=== PATIENT | female | born 1990 | race Caucasian/White ===

== ENCOUNTER → 2018-07-07 | Outpatient (CLI) | payer BC, OTHER ==
[~2018-07-07] MED LIST: FERR325T18 PO; IBUP-1773 PO; PREN1TAB86 PO
--- NOTE | 2018-07-07 17:39 | Diagnostic Imaging Report ---
INDICATION: Ultrasound evaluation for dating. TECHNIQUE: Multiple real-time grayscale images were obtained over the gravid uterus. COMPARISON: None. FINDINGS: Limited obstetrical ultrasound demonstrates a single live intrauterine in variable presentation. Grade 1 placenta lies anteriorly. No evidence of previa. heart rate is 155 beats per minute. Male genital anatomy. Anatomic measurements correspond to a 15 weeks, 4 days gestation. The cervix is closed and measures up to 4.3 cm in length. The ovaries are not well seen. Biometrical measurements are as follows: Biparietal 3.11 cm, age 15 weeks 6 days. Head circumference 11.60 cm, age 15 weeks 5 days. Abdominal circumference 8.75 cm, age 15 weeks 1 days. Femur length 1.74 cm, age 15 weeks 2 days. Sonographic estimate age: 15 weeks 4 days. Sonographic estimated date of delivery: 12/25/18. Estimated Weight: 116 gm (+/- 17 gm). LMP percentile: 2%. heart rate: 155 beats per minute. number: 1 of 1. IMPRESSION: Limited obstetrical ultrasound, as above. Anatomic measurements corresponding to a 15 weeks, 4 days gestation (RISHI 12/25/2018). Dictated by: Dictated on workstation # [id number]
== END ==
LOC: RAD 15:28
PROVIDERS: ATTEND Family Medicine
DX: Z34.82 Encounter for supervision of other normal pregnancy, second trimester (principal); Z3A.15 15 weeks gestation of pregnancy
CPT/HCPCS: 76805

== ENCOUNTER 2018-12-20 07:00 | Inpatient (IN) | payer OTHER ==
[2018-12-20] VITALS (29 sets, daily range): BP systolic 107–139; BP diastolic 55–103
[~2018-12-20] VITALS: Ht 157.5 cm; Wt 73.3 kg
--- NOTE | 2018-12-20 07:01 | NUR ---
ARMANDO BIRD presented to unit via AMBULATORY from HOME, accompanied by S/O FOR INDUCTION OF LABOR. ARMANDO BIRD weighed, gowned, voided, and to bed. EFHM and TOCO applied, VS taken. ARMANDO BIRD oriented to bed controls, call light, TV, heat, and A/C controls.
--- NOTE | 2018-12-20 07:12 | NUR ---
DR. HARPER CALLED PER THIS RN. DR WANTS A SVE DONE BEFORE PLACING ORDERS. WILL CHECK AND CALL PHYSICIAN BACK.
--- OUTSIDE RECORDS SUMMARY | 2018-12-20 07:14 | XMS REPORT ---
Author Author MEREDITH SISSY [facility] Address [address] [place] [address] Care Team Providers Care Slurry Control Operator Helper Name Role Phone MEREDITHKENDRA NUÑEZY Unavailable PROBLEMS Unknown Problems ALLERGIES No Information ENCOUNTERS Encounter Location Date Diagnosis [place] [address] [address] Jun, [place] [address] [address] Jun, [place] [address] [address]- 5336 May, Normal in multigravida Z34.80 ; Encounter for immunization Z23 and 12 weeks gestation of Z3A.12 [place] [address] [place] [id number] [place] [address] 23533- 0190 May, [place] [address] [address]- [address]240 Apr, [place] [address] [place] [id number] [place] [address] 59164- 4882 Apr, Encounter for test, result unknown Z32.00 [facility] [address] [place] [id number] [place] [address] [id number] Feb, Dental examination Z01.20 [place] [address] 6[address]- 8602 December, Intrahepatic cholestasis K76.89 [place] [address] [place] [id number] [place] [address] 51163- 2450 Nov, Routine follow-up Z39.2 ; Intrahepatic cholestasis K76.89 and anemia O90.81 [place] [address] [place] [id number] [place] [address] 18547- 4809 16 Oct, 2015 36 weeks gestation of Z3A.36 ; Itching L29.9 and Transaminitis R74.0 [place] [address] [place] [id number] [place] [address] 42097- 1282 16 Oct, 2015 Transaminitis R74.0 [place] [address] [place] [id number] [place] [address] 85607- 2455 15 Oct, 2015 Encounter for supervision of normal first in third trimester Z34.03 ; screening for streptococcus B Z36 ; 36 weeks gestation of Z3A.36 and Itching L29.9 [place] [address] [place] [id number] [place] [address] 12848- 7047 11 Oct, 2015 Encounter for supervision of normal first in third trimester Z34.03 and 35 weeks gestation of Z3A.[address] [address]- [address] Sep, Encounter for supervision of normal first in third trimester Z34.03 ; 31 weeks gestation of Z3A.31 and Encounter for immunization Z23 [place] [address] [place] [id number] [place] [address] 51300- 0396 Aug, [place] [address] [place] [id number] [place] [address] 61593- 4608 Aug, [place] [address] [place] [id number] [place] [address] 43932- 0998 Aug, Elevated glucose tolerance test R73.02 [place] [id number] [place] [address] 65871- 0545 Aug, Diabetes mellitus screening Z13.1 ; Screening, iron deficiency anemia Z13.0 ; Encounter for supervision of normal first in third trimester Z34.03 and 29 weeks gestation of Z3A.29 [place] [address] [place] [id number] [place] [address] 55948- 0517 Jul, , first, second trimester Z34.02 and 24 weeks gestation of Z3A.24 [facility] [address] [address] Jun, , first, second trimester Z34.02 and 20 weeks gestation of Z3A.20 [facility] [address], [place] [address] May, , first, second trimester Z34.02 ; Encounter for immunization Z23 and 16 weeks gestation of Z3A.16 [facility] [address] [id number] May, Dental examination Z01.20 [facility] [address] [place] [id number] [place] [address] 95266- 9766 Apr, Supervision of normal first V22.0 [facility] [address] [place] [id number] [place] [address] 11578- 7243 Mar, Encounter for test V72.40 [facility] [address] [place] [id number] [place] [address] 26882- 0888 Mar, Pre-conception counseling V26.49 [facility] [address] [place] [id number] [place] [address] 68585- 7456 Feb, [facility] [address] [place] [id number] [place] [address] 01986- 7567 Feb, [facility] [address] [place] [id number] [place] [address] 17410- 3203 Feb, [facility] [address] [place] [id number] [place] [address] 84615- 2263 Feb, [facility] [address] [place] [id number] [place] [address] 02463- 0856 Feb, [facility] [address] [place] [id number] [place] [address] 44199- 0176 May, [facility] [address] [place] [id number] [place] [address] 65028- 0627 May, [facility] [address] [facility] [id number] [address] 26[address] Mar, [facility] [address] [place] [id number] [address] 3826 Jun, [facility] [address] [facility] [id number], [place] [address] Jun, [facility] [address] [place] [id number], [place] [address] 2430 May, IMMUNIZATIONS No Known Immunizations SOCIAL HISTORY Never Assessed 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
--- OUTSIDE RECORDS SUMMARY | 2018-12-20 07:14 | XMS REPORT ---
Author Author MEREDITH SISSY [facility] Address [address] [place] [address] Care Team Providers Care Real Estate Office Supervisor Name Role Phone MEREDITHPARASSISSY Unavailable PROBLEMS Unknown Problems ALLERGIES No Information ENCOUNTERS Encounter Location Date Diagnosis [place] [address] [address] Jun, [address] [address]- [address] May, Normal in multigravida Z34.80 ; Encounter for immunization Z23 and 12 weeks gestation of Z3A.12 [place] [address] 03579- 5857 May, [place] [address] 64143- 2778 Apr, [place] [address] 54841- 8996 Apr, Encounter for test, result unknown Z32.00 [facility] [address] [id number] Feb, Dental examination Z01.20 [place] [address] [place] [id number] [place] [address] 18235- 9314 December, Intrahepatic cholestasis K76.89 [place] [address] 63638- 1460 Nov, Routine follow-up Z39.2 ; Intrahepatic cholestasis K76.89 and anemia O90.81 [place] [address] 11916- 3358 16 Mar, 2016 36 weeks gestation of Z3A.36 ; Itching L29.9 and Transaminitis R74.0 [place] [address] [place] [id number] [place] [address] 90480- 9325 16 Oct, 2015 Transaminitis R74.0 [facility] [address] [place] [id number] [place] [address] 23571- 7782 15 Oct, 2015 Encounter for supervision of normal first in third trimester Z34.03 ; screening for streptococcus B Z36 ; 36 weeks gestation of Z3A.36 and Itching L29.9 [place] [address] [place] [id number] [place] [address] 99191- 5881 11 Oct, 2015 Encounter for supervision of normal first in third trimester Z34.03 and 35 weeks gestation of Z3A.35 [place] [address] [place] [id number] [place] [address] 18467- 6962 Sep, Encounter for supervision of normal first in third trimester Z34.03 ; 31 weeks gestation of Z3A.31 and Encounter for immunization Z23 [place] [address] [place] [id number] [place] [address] 48620- 7897 Aug, [place] [address] [place] [id number] [place] [address] 50606- 0370 Aug, [place] [address] [place] [id number] [place] [address] 00682- 1313 Aug, Elevated glucose tolerance test R73.02 [place] [address] [place] [id number] [place] [address] 58324- 7166 Aug, Diabetes mellitus screening Z13.1 ; Screening, iron deficiency anemia Z13.0 ; Encounter for supervision of normal first in third trimester Z34.03 and 29 weeks gestation of Z3A.29 [place] [address] [place] [id number] [place] [address] 01844- 1094 Jul, , first, second trimester Z34.02 and 24 weeks gestation of Z3A.24 [place] [address] 26447- 0188 Jun, , first, second trimester Z34.02 and 20 weeks gestation of Z3A.20 [facility] [address] [place] [id number] [place] [address] 01281- 3527 May, , first, second trimester Z34.02 ; Encounter for immunization Z23 and 16 weeks gestation of Z3A.16 [facility] [address] [place] [id number] [place] [address] [id number] May, Dental examination Z01.20 [facility] [address] [place] [id number] [place] [address] 12123- 4266 Apr, Supervision of normal first V22.0 [facility] [address] 91965- 4961 Mar, Encounter for test V72.40 [facility] [address] 84015- 0453 Mar, Pre-conception counseling V26.49 [facility] [address] [place] [id number] [place] [address] 29008- 8139 Feb, [facility] [address] [place] [id number] [place] [address] 21423- 3065 Feb, [facility] [address] [place] [id number] [place] [address] 87582- 7953 Feb, [facility] [address] [place] [id number] [place] [address] 76729- 9466 Feb, [facility] [address] [place] [id number] [place] [address] 60699- 4223 Feb, [facility] [address] [place] [id number] [place] [address] 80177- 1546 May, [facility] [address] [place] [id number] [place] [address] 75283- 4096 May, [facility] [address] [place] [id number] [place] [address] 41017- 7952 Mar, [facility] [address] [facility] [id number] [place] [address]- 8249 Jun, [facility] [address] [facility] [id number], [place] [address]- 0366 Jun, [facility] [address] [facility] [id number], [place] [address]- 7226 May, IMMUNIZATIONS Vaccine Route Administration Date Status FLULAVAL QUAD 0.5ML (6 MO & UP) 2018 IM Intramuscular Jun 07, 2018 Administered SOCIAL HISTORY Never Assessed REASON FOR VISIT AL-relscw-frthzd PLAN OF CARE Activity Details Follow Up 4W, 4 Weeks Reason: Pending Test Ultrasound : OB, Early <14 WEEKS Pending Test GC/CHLAM PROBE (STATE) Pending Test SYPHILIS (STATE) Pending Test HIV (STATE) Pending Test HEP B SURFACE ANTIGEN (STATE) Pending Test SUREPATH PAP RFX HR HPV Pending Test PAP REFLEX TO HPV IF ASCUS Future/Pending Procedure ROUTINE VENIPUNCTURE VITAL SIGNS Height 62 in 2018-06-07 Weight 131.4 lbs 2018-06-07 Temperature 98.6 degrees Fahrenheit 2018-06-07 Heart Rate 110 bpm 2018-06-07 Respiratory Rate 20 2018-06-07 BMI 24.033 kg/m2 2018-06-07 Blood pressure systolic 104 mmHg 2018-06-07 Blood pressure diastolic 60 mmHg 2018-06-07 MEDICATIONS Medication Instructions Dosage Frequency Start Date End Date Duration Status Complete Active RESULTS No Results PROCEDURES Procedure Date Ordered Result Body Site BLOOD TYPING, ABO Jun 07, 2018 BLOOD TYPING, RH (D) Jun 07, 2018 SPECIMEN HANDLING Jun 07, 2018 No Charge Jun 07, 2018 DRUG TEST PRSMV DIR OPT OBS Jun 07, 2018 RBC ANTIBODY SCREEN Jun 07, 2018 TRICHOMONAS ASSAY W/OPTIC Jun 07, 2018 COMPLETE CBC W/AUTO DIFF WBC Jun 07, 2018 CULTURE, BACTERIA, OTHER Jun 07, 2018 URINALYSIS, AUTO, W/O SCOPE Jun 07, 2018 ASSAY THYROID STIM HORMONE Jun 07, 2018 RUBELLA ANTIBODY Jun 07, 2018 URINE CULTURE/COLONY COUNT Jun 07, 2018 COMPREHEN METABOLIC PANEL Jun 07, 2018 FLULAVAL QUAD 0.5ML (6 MO AND UP) 2018 Jun 07, 2018 SINGLE IMMUNIZATION ADMIN Jun 07, 2018 VENIPUNCT, ROUTINE* Jun 07, 2018 INSTRUCTIONS MEDICATIONS ADMINISTERED No Known Medications MEDICAL (GENERAL) HISTORY Type Description Date Medical History Intrahepatic cholestasis Surgical History No know Surgical history Hospitalization History child only 2015
--- OUTSIDE RECORDS SUMMARY | 2018-12-20 07:14 | XMS REPORT ---
Author Author MEREDITH SISSY [facility] Address [address] [place] [address] Care Team Providers Care Blast Furnace Checker Name Role Phone MEREDITHPARASSISSY Unavailable PROBLEMS Type Condition ICD9-CM Code [id number] Code Onset Dates Condition Status SNOMED Code Problem Second trimester Z33.1 Active 21399540 ALLERGIES No Information ENCOUNTERS Encounter Location Date Diagnosis [address] [address] Jul, [address] [address]- [address]27 Jun, Second trimester Z33.1 and 16 weeks gestation of Z3A.[address] [address]23- 0961 Jun, [address] [address]- 7717 May, Normal in multigravida Z34.80 ; Encounter for immunization Z23 and 12 weeks gestation of Z3A.12 [place] [address] [address]- [address]87 May, [place] [address] [address]- 5043 Apr, [address] 14[address]- 3792 Apr, Encounter for test, result unknown Z32.00 [facility] [address] [place] [id number] [place] [address] [id number] Feb, Dental examination Z01.20 [place] [address] 6[address]- 3403 December, Intrahepatic cholestasis K76.89 [place] [address] [place] [id number] [place] [address] 79875- 9498 Nov, Routine follow-up Z39.2 ; Intrahepatic cholestasis K76.89 and anemia O90.81 [place] [address] [place] [id number] [place] [address] 74529- 7581 Oct, 36 weeks gestation of Z3A.36 ; Itching L29.9 and Transaminitis R74.0 [place] [address] [place] [id number] [place] [address] 18659- 5540 Oct, Transaminitis R74.0 [place] [address] [address]20- 4694 Oct, Encounter for supervision of normal first in third trimester Z34.03 ; screening for streptococcus B Z36 ; 36 weeks gestation of Z3A.36 and Itching L29.9 [place] [address] [place] [id number] [place] [address] 45882- 7187 Oct, Encounter for supervision of normal first in third trimester Z34.03 and 35 weeks gestation of Z3A.35 [place] [address] [place] [id number] [place] [address] 36129- 0917 Sep, Encounter for supervision of normal first in third trimester Z34.03 ; 31 weeks gestation of Z3A.31 and Encounter for immunization Z23 [place] [address] [place] [id number] [place] [address] 25693- 0253 Aug, [place] [address] [place] [id number] [place] [address] 36264- 7212 Aug, [place] [address] 60872- 0362 Aug, Elevated glucose tolerance test R73.02 [place] [address] [place] [id number] [place] [address] 22001- 0757 Aug, Diabetes mellitus screening Z13.1 ; Screening, iron deficiency anemia Z13.0 ; Encounter for supervision of normal first in third trimester Z34.03 and 29 weeks gestation of Z3A.29 [facility] [address] [place] [id number] [place] [address] 76218- 1483 Jul, , first, second trimester Z34.02 and 24 weeks gestation of Z3A.24 [place] [address] [place] [id number] [place] [address] 16184- 0640 Jun, , first, second trimester Z34.02 and 20 weeks gestation of Z3A.20 [place] [address] [place] [id number] [place] [address] 50094- 0388 May, , first, second trimester Z34.02 ; Encounter for immunization Z23 and 16 weeks gestation of Z3A.16 [facility] [address] [place] [id number] [place] [address] [id number] May, Dental examination Z01.20 [place] [address] [place] [id number] [place] [address] 42138- 8910 Apr, Supervision of normal first V22.0 [place] [id number] [place] [address] 38951- 2006 Mar, Encounter for test V72.40 [place] [id number] [place] [address] 66054- 6286 Mar, Pre-conception counseling V26.49 [place] [address] [place] [id number] [place] [address] 69331- 9388 Feb, [place] [address] [place] [id number] [place] [address] 45626- 2680 Feb, [place] [address] [place] [id number] [place] [address] 60933- 6672 Feb, [place] [address] [place] [id number] [place] [address] 48323- 7295 Feb, [place] [address] [id number] [address]- 2546 Feb, [facility] [address] [facility] [address] [id number] [address]- 5796 May, [facility] [address] [facility] [address] [id number] [address]- 6176 May, [facility] [address] [facility] [address] [id number] [address]- 2546 Mar, [facility] [address] [facility] [address] [id number] [address]- 5216 Jun, [facility] [address] [facility] [address] [id number] [address]- 4596 Jun, [facility] [address] [facility] [address] [id number] [address]- 1116 May, IMMUNIZATIONS No Known Immunizations SOCIAL HISTORY Never Assessed REASON FOR VISIT OB 4wk f/u, ob urine dip @ 16.1 [facility]awoods PLAN OF CARE Activity Details Follow Up 4 Weeks, 4 Weeks Reason: Pending Test PENTA SCREEN VITAL SIGNS Height 62 in 2018-07-05 Weight 134.6 lbs 2018-07-05 Temperature 98.2 degrees Fahrenheit 2018-07-05 Heart Rate 90 bpm 2018-07-05 Respiratory Rate 20 2018-07-05 BMI 24.619 kg/m2 2018-07-05 Blood pressure systolic 106 mmHg 2018-07-05 Blood pressure diastolic 64 mmHg 2018-07-05 MEDICATIONS Medication Instructions Dosage Frequency Start Date End Date Duration Status Complete Active RESULTS Name Result Date Reference Range UA OB DIP (IN HOUSE) 2018-07-05 Glucose negative Protein negative PROCEDURES Procedure Date Ordered Result Body Site URINE-NO MICRO Jul 05, 2018 CHEMILUMINESCENT ASSAY Jul 05, 2018 INHIBIN A Jul 05, 2018 ALPHA-FETOPROTEIN, SERUM Jul 05, 2018 CHORIONIC GONADOTROPIN TEST Jul 05, 2018 ASSAY OF ESTRIOL Jul 05, 2018 INSTRUCTIONS MEDICATIONS ADMINISTERED No Known Medications MEDICAL (GENERAL) HISTORY Type Description Date Medical History Intrahepatic cholestasis Surgical History No know Surgical history Hospitalization History child only 2015
--- OUTSIDE RECORDS SUMMARY | 2018-12-20 07:14 | XMS REPORT ---
Author Author MEREDITHSISSY [facility] Address [address] [place] [address] Care Team Providers Care Scrap Bunch Maker Name Role Phone MEREDITHKENDRA NUÑEZY Unavailable PROBLEMS Type Condition ICD9-CM Code [id number] Code Onset Dates Condition Status SNOMED Code Problem Second trimester Z33.1 Active 43224004 ALLERGIES No Information ENCOUNTERS Encounter Location Date Diagnosis [place] [id number] [place] [address] 69779- 3771 Nov, [place] [id number] [place] [address] 58658- 6318 Nov, [place] [id number] [place] [address] 35142- 8959 Oct, [place] [id number] [place] [address] 61495- 5358 Oct, Encounter for supervision of normal first in third trimester Z34.03 and 33 weeks gestation of Z3A.[address] [address] Oct, growth problem suspected but not found Z03.74 ; Encounter for supervision of normal first in third trimester Z34.03 ; Encounter for immunization Z23 and 30 weeks gestation of Z3A.30 [place] [address] [place] [address] 16652- 8174 Oct, Abnormal glucose tolerance test (GTT) during , antepartum O99.810 [place] [id number] [place] [address] 94893- 0289 Oct, Abnormal glucose tolerance test (GTT) during , antepartum O99.810 [place] [id number] [place] [address] 50200- 4031 Oct, Encounter for supervision of normal first in third trimester Z34.03 ; Encounter for immunization Z23 ; growth problem suspected but not found Z03.74 and 30 weeks gestation of Z3A.30 [place] [id number] [place] [address] 27402- 0273 Aug, Second trimester Z34.92 and 24 weeks gestation of Z3A.24 [place] [address] 51658- 7238 Jul, Encounter for supervision of normal first in third trimester Z34.03 [place] [address] 39415- 2942 Jul, Encounter for supervision of normal first in third trimester Z34.03 and 20 weeks gestation of Z3A.20 [place] [address] 27603- 2376 Jun, Second trimester Z33.1 and 16 weeks gestation of Z3A.16 [place] [id number] [place] [address] 25022- 4760 Jun, [place] [id number] [place] [address] 09431- 5064 May, Normal in multigravida Z34.80 ; Encounter for immunization Z23 and 12 weeks gestation of Z3A.12 [place] [id number] [place] [address] 18819- 0422 May, [place] [address] 27971- 6272 Apr, [place] [address] 76146- 2517 Apr, Encounter for test, result unknown Z32.00 [facility] [id number] [place] [address] [id number] Feb, Dental examination Z01.20 [place] [id number] [place] [address] 12082- 4394 December, Intrahepatic cholestasis K76.89 [place] [address] 27738- 7090 Nov, Routine follow-up Z39.2 ; Intrahepatic cholestasis K76.89 and anemia O90.81 [place] [address] 78232- 6699 Oct, 36 weeks gestation of Z3A.36 ; Itching L29.9 and Transaminitis R74.0 [place] [id number] [place] [address] 17065- 9031 Oct, Transaminitis R74.0 [place] [address] 41150- 5890 Oct, Encounter for supervision of normal first in third trimester Z34.03 ; screening for streptococcus B Z36 ; 36 weeks gestation of Z3A.36 and Itching L29.9 [place] [id number] [place] [address] 49651- 7623 Oct, Encounter for supervision of normal first in third trimester Z34.03 and 35 weeks gestation of Z3A.35 [place] [id number] [place] [address] 62776- 5688 Sep, Encounter for supervision of normal first in third trimester Z34.03 ; 31 weeks gestation of Z3A.31 and Encounter for immunization Z23 [place] [id number] [place] [address] 90541- 8715 Aug, [place] [address] 54842- 0120 Aug, [place] [id number] [place] [address] 55237- 0204 Aug, Elevated glucose tolerance test R73.02 [place] [address] 90833- 0207 Aug, Diabetes mellitus screening Z13.1 ; Screening, iron deficiency anemia Z13.0 ; Encounter for supervision of normal first in third trimester Z34.03 and 29 weeks gestation of Z3A.29 [place] [id number] [place] [address] 09789- 7445 Jul, , first, second trimester Z34.02 and 24 weeks gestation of Z3A.[address] 39703- 4140 Jun, , first, second trimester Z34.02 and 20 weeks gestation of Z3A.[address] 821238- 8898 May, , first, second trimester Z34.02 ; Encounter for immunization Z23 and 16 weeks gestation of Z3A.16 [facility] [address] [id number] May, Dental examination Z01.[address] 39906- 1057 Apr, Supervision of normal first V22.[address] 24315- 0829 Mar, Encounter for test V72.[address] 56806- 8466 Mar, Pre-conception counseling V26.49 [place] [id number] [place] [address] 94261- 9386 Feb, [place] [address] 73936- 8066 Feb, [place] [address] 91658057- 6004 Feb, [place] [id number] [place] [address] 02904- 9236 Feb, [address] [facility] [id number] [address] 2546 Feb, [facility] [id number] [address]- 6254 May, [facility] [address], [place] [address]- 9426 May, [facility] [id number], [place] [address]- 5526 Mar, [facility] [id number], [place] [address]- 9515 Jun, [facility] [id number] [address]- 1381 Jun, [facility] [id number], [place] [address]- 9951 May, IMMUNIZATIONS No Known Immunizations SOCIAL HISTORY Never Assessed REASON FOR VISIT Future lab orders PLAN OF CARE VITAL SIGNS MEDICATIONS Unknown Medications RESULTS No Results PROCEDURES No Known procedures INSTRUCTIONS MEDICATIONS ADMINISTERED No Known Medications MEDICAL (GENERAL) HISTORY Type Description Date Medical History Intrahepatic cholestasis Surgical History No know Surgical history Hospitalization History child only 2015
--- OUTSIDE RECORDS SUMMARY | 2018-12-20 07:15 | XMS REPORT ---
Author Author SISSY HARPER [employer] Address Unknown Phone Unavailable Care Team Providers Care Supervisor Special Services Name Role Phone SISSY HARPER Unavailable Allergies, Adverse Reactions, Alerts Substance Reaction Event Type N.K.D.A. Info Not Available Non Drug Allergy Problems Problem Type Condition Code Onset Dates Condition Status Problem Anemia complicating , third trimester O99.013 Active Assessment Diabetes mellitus screening Z13.1 Active Problem Encounter for supervision of normal first in third trimester Z34.03 Active Assessment 29 weeks gestation of Z3A.29 Active Assessment Screening, iron deficiency anemia Z13.0 Active Assessment Encounter for supervision of normal first in third trimester Z34.03 Active Medications Medication Code System Code Instructions Start Date End Date Status Dosage Complete [facility] [id number] not defined Procedures Procedure Coding System Code Date COMPLETE CBC W/AUTO DIFF WBC CPT-4 58354 Sep 11, 2015 URINE-NO MICRO CPT-4 09937 Sep 11, 2015 GLUCOSE TEST CPT-4 35184 Sep 11, 2015 VENIPUNCT, ROUTINE* CPT-4 41776 Sep 11, 2015 Office Visit, Est Pt., Level 2 CPT-4 54009 Sep 11, 2015 Vital Signs Date/Time: Sep 11, 2015 Temperature 98.8 F Weight 140.8 lbs Height 62 in BMI 25.753 Index Blood Pressure Diastolic 70 mmHg Blood Pressure Systolic 108 mmHg Cardiac Monitoring Heart Rate 92 bpm Results No Known Results Summary Purpose [employer] Submission
--- OUTSIDE RECORDS SUMMARY | 2018-12-20 07:15 | XMS REPORT ---
Author Author MEREDITH SISSY [facility] Address [address] [place] [address] Care Team Providers Care Key Worker Name Role Phone MEREDITHPARASSISSY Unavailable PROBLEMS Type Condition ICD9-CM Code DSP33-DV Code Onset Dates Condition Status SNOMED Code Problem anemia O90.81 Active 512785648 Problem Intrahepatic cholestasis K76.89 Active 9515842 ALLERGIES No Known Allergies ENCOUNTERS Encounter Location Date Diagnosis [place] [address] 33563- 2756 May, [place] [address] 74296- 7653 May, [facility] [id number] [place] [address] 94819- 8219 Apr, [place] [address] 60982- 7744 Apr, Encounter for test, result unknown Z32.00 [facility] [id number] [place] [address] [id number] Feb, Dental examination Z01.20 [place] [address] 27182- 2539 December, Intrahepatic cholestasis K76.89 [facility] [address] 11217- 6253 Nov, Routine follow-up Z39.2 ; Intrahepatic cholestasis K76.89 and anemia O90.81 [place] [id number] [place] [address] 16374- 1943 Oct, 36 weeks gestation of Z3A.36 ; Itching L29.9 and Transaminitis R74.0 [place] [id number] [place] [address] 35642- 6012 16 Oct, 2015 Transaminitis R74.0 [place] [id number] [place] [address] 98303- 4698 15 Oct, 2015 Encounter for supervision of normal first in third trimester Z34.03 ; screening for streptococcus B Z36 ; 36 weeks gestation of Z3A.36 and Itching L29.9 [place] [id number] [place] [address] 60986- 9852 11 Oct, 2015 Encounter for supervision of normal first in third trimester Z34.03 and 35 weeks gestation of Z3A.35 [place] [id number] [place] [address] 18185- 0428 12 Sep, 2015 Encounter for supervision of normal first in third trimester Z34.03 ; 31 weeks gestation of Z3A.31 and Encounter for immunization Z23 [place] [id number] [place] [address] 01010- 1558 Aug, [place] [id number] [place] [address] 57713- 8624 Aug, [place] [address] 99228- 8590 Aug, Elevated glucose tolerance test R73.02 [place] [id number] [place] [address] 83186- 3361 Aug, Diabetes mellitus screening Z13.1 ; Screening, iron deficiency anemia Z13.0 ; Encounter for supervision of normal first in third trimester Z34.03 and 29 weeks gestation of Z3A.29 [place] [id number] [place] [address] 30536- 9309 Jul, , first, second trimester Z34.02 and 24 weeks gestation of Z3A.24 [place] [id number] [place] [address] 17100- 6859 Jun, , first, second trimester Z34.02 and 20 weeks gestation of Z3A.20 [facility] [address] [address]- 0986 May, , first, second trimester Z34.02 ; Encounter for immunization Z23 and 16 weeks gestation of Z3A.16 [facility] [address] [id number] May, Dental examination Z01.20 [facility] [id number] [place] [address] 95755- 5034 Apr, Supervision of normal first V22.0 [facility] [address] 31495- 8258 Mar, Encounter for test V72.40 [facility] [id number] [place] [address] 79906- 3095 Mar, Pre-conception counseling V26.49 [facility] [id number] [place] [address] 28558- 3433 Feb, [facility] [id number] [place] [address] 54188- 5657 Feb, [facility] [id number] [place] [address] 13065- 4758 Feb, [facility] [address] [address]- 9392 Feb, [facility] [id number] [place] [address] 00753- 2646 Feb, [facility] [id number] [place] [address] 81823- 7740 May, [facility] [id number] [place] [address] 91205- 6693 May, [facility] [address] [place] [address] 47443- 7515 Mar, [facility] [id number] [place] [address] 16863- 7796 Jun, [facility] [address] [facility] [id number] [address]- 2546 Jun, [facility] [address] [facility] [id number] [address]- 2688 May, IMMUNIZATIONS No Known Immunizations SOCIAL HISTORY Never Assessed REASON FOR VISIT OB Flowsheet History PLAN OF CARE VITAL SIGNS MEDICATIONS Medication Instructions Dosage Frequency Start Date End Date Duration Status Ferrous Sulfate 325 (65 Fe) MG Orally Once a day 1 tablet 24h Aug, 30 day(s) Not-Taking Complete Active RESULTS No Results PROCEDURES No Known procedures INSTRUCTIONS MEDICATIONS ADMINISTERED No Known Medications MEDICAL (GENERAL) HISTORY Type Description Date Surgical History No know Surgical history Hospitalization History child only 2015
--- OUTSIDE RECORDS SUMMARY | 2018-12-20 07:15 | XMS REPORT ---
Author Author NIDIA BAXTER [facility] Address [address] [place] [address] Phone Unavailable Care Team Providers Care Cellophane Bath Mixer Name Role Phone NIDIA BAXTER Unavailable Unavailable PROBLEMS Type Condition ICD9-CM Code MWV18-ZO Code Onset Dates Condition Status SNOMED Code Problem anemia O90.81 Active 890826906 Problem Intrahepatic cholestasis K76.89 Active 9816781 ALLERGIES No Known Allergies ENCOUNTERS Encounter Location Date Diagnosis [facility] [id number] [place] [address] [id number] Feb, Dental examination Z01.20 [place] [id number] [place] [address] 82237- 5301 December, Intrahepatic cholestasis K76.89 [place] [address] 82134- 3248 Nov, Routine follow-up Z39.2 ; Intrahepatic cholestasis K76.89 and anemia O90.81 [place] [id number] [place] [address] 35547- 6192 Oct, 36 weeks gestation of Z3A.36 ; Itching L29.9 and Transaminitis R74.0 [place] [id number] [place] [address] 18489- 8483 Oct, Transaminitis R74.0 [place] [id number] [place] [address] 88429- 0339 15 Oct, 2015 Encounter for supervision of normal first in third trimester Z34.03 ; screening for streptococcus B Z36 ; 36 weeks gestation of Z3A.36 and Itching L29.9 [place] [id number] [place] [address] 47693- 0685 11 Oct, 2015 Encounter for supervision of normal first in third trimester Z34.03 and 35 weeks gestation of Z3A.35 [place] [address] [place] [address] 22857- 0147 Sep, Encounter for supervision of normal first in third trimester Z34.03 ; 31 weeks gestation of Z3A.31 and Encounter for immunization Z23 [place] [id number] [place] [address] 22611- 2019 Aug, [place] [id number] [place] [address] 08215- 3768 Aug, [place] [id number] [place] [address] 55324- 0233 Aug, Elevated glucose tolerance test R73.02 [place] [id number] [place] [address] 27506- 8846 Aug, Diabetes mellitus screening Z13.1 ; Screening, iron deficiency anemia Z13.0 ; Encounter for supervision of normal first in third trimester Z34.03 and 29 weeks gestation of Z3A.29 [place] [id number] [place] [address] 96717- 6781 Jul, , first, second trimester Z34.02 and 24 weeks gestation of Z3A.[address] [place] [address] 06202- 3483 Jun, , first, second trimester Z34.02 and 20 weeks gestation of Z3A.20 [place] [address] [place] [address] 52252- 8483 May, , first, second trimester Z34.02 ; Encounter for immunization Z23 and 16 weeks gestation of Z3A.16 [facility] [address] [place] [address] [id number] May, Dental examination Z01.20 [facility] [address] [place] [address] 75587- 1044 Apr, Supervision of normal first V22.[address] [id number] [address]- 4445 Mar, Encounter for test V72.40 [facility] [id number] [place] [address] 86542- 5751 Mar, Pre-conception counseling V26.49 [facility] [address], [place] [address]- 9384 Feb, [facility] [address], [place] [address]- 1140 Feb, [facility] [address], [place] [address]- 8109 Feb, [facility] [address] [place] [address] 28588- 0657 Feb, [facility] [address] [place] [address] 59862- 4391 Feb, [facility] [address] [place] [address] 85610- 4432 May, [facility] [address], [place] [address]- 5774 May, [facility] [address], [place] [address]- 6479 Mar, [facility] [id number], [place] [address]- 6960 Jun, [facility] [address], [place] [address]- 7138 Jun, [facility] [id number] [address]- 1628 May, IMMUNIZATIONS No Known Immunizations SOCIAL HISTORY Never Assessed REASON FOR VISIT Prophy PLAN OF CARE Activity Details Follow Up luz Reason:blanca/xrays VITAL SIGNS Height 62 in 2018-03-08 Blood pressure systolic 118 mmHg 2018-03-08 Blood pressure diastolic 74 mmHg 2018-03-08 MEDICATIONS Medication Instructions Dosage Frequency Start Date End Date Duration Status Complete Active Ferrous Sulfate 325 (65 Fe) MG Orally Once a day 1 tablet 24h 28 Aug, 2015 30 day(s) Not-Taking RESULTS No Results PROCEDURES Procedure Date Ordered Result Body Site PROPHYLAXIS - ADULT March 08, 2018 TOPICAL FLUORIDE VARNISH March 08, 2018 INSTRUCTIONS MEDICATIONS ADMINISTERED No Known Medications MEDICAL (GENERAL) HISTORY Type Description Date Hospitalization History child only 2015
--- OUTSIDE RECORDS SUMMARY | 2018-12-20 07:15 | XMS REPORT ---
Author Author MEREDITH SISSY [facility] Address [address] [place] [address] Care Team Providers Care Neurological Physiotherapist Name Role Phone MEREDITHPARASSISSY Unavailable PROBLEMS Type Condition ICD9-CM Code WRD61-JM Code Onset Dates Condition Status SNOMED Code Problem anemia O90.81 Active 485730449 Problem Intrahepatic cholestasis K76.89 Active 5070695 ALLERGIES No Information ENCOUNTERS Encounter Location Date Diagnosis [place] [address] [address]- 3913 Apr, [place] [address] 33339- 0796 Apr, Encounter for test, result unknown Z32.00 [facility] [address] [id number] Feb, Dental examination Z01.20 [place] [id number] [place] [address] 60195- 3405 December, Intrahepatic cholestasis K76.89 [place] [id number] [place] [address] 42186- 6932 Nov, Routine follow-up Z39.2 ; Intrahepatic cholestasis K76.89 and anemia O90.81 [facility] [id number] [place] [address] 59793- 6150 Oct, 36 weeks gestation of Z3A.36 ; Itching L29.9 and Transaminitis R74.0 [facility] [id number] [place] [address] 22762- 4031 Oct, Transaminitis R74.0 [place] [address] 52554- 7004 Oct, Encounter for supervision of normal first in third trimester Z34.03 ; screening for streptococcus B Z36 ; 36 weeks gestation of Z3A.36 and Itching L29.9 [place] [id number] [place] [address] 34735- 9046 Oct, Encounter for supervision of normal first in third trimester Z34.03 and 35 weeks gestation of Z3A.35 [place] [id number] [place] [address] 54304- 0151 Sep, Encounter for supervision of normal first in third trimester Z34.03 ; 31 weeks gestation of Z3A.31 and Encounter for immunization Z23 [place] [id number] [place] [address] 27930- 1022 Aug, [address] 14395- 3207 Aug, [address] 76194- 8563 Aug, Elevated glucose tolerance test R73.[address] 13595- 4267 Aug, Diabetes mellitus screening Z13.1 ; Screening, iron deficiency anemia Z13.0 ; Encounter for supervision of normal first in third trimester Z34.03 and 29 weeks gestation of Z3A.29 [place] [id number] [place] [address] 66256- 2634 Jul, , first, second trimester Z34.02 and 24 weeks gestation of Z3A.24 [place] [address] [place] [address] 74868- 8971 Jun, , first, second trimester Z34.02 and 20 weeks gestation of Z3A.20 [place] [id number] [place] [address] 09547- 0182 May, , first, second trimester Z34.02 ; Encounter for immunization Z23 and 16 weeks gestation of Z3A.16 [facility] [address] [id number] May, Dental examination Z01.20 [facility] [id number] [place] [address] 49105- 8236 Apr, Supervision of normal first V22.0 [facility] [address], [place] [address]- 0587 Mar, Encounter for test V72.40 [facility] [address] [facility] [id number] [address]- 8776 Mar, Pre-conception counseling V26.49 [facility] [id number] [place] [address] 95996- 9013 Feb, [facility] [id number] [place] [address] 39234- 7313 Feb, [facility] [id number] [place] [address] 86944- 0521 Feb, [facility] [address], [place] [address]- 1181 Feb, [facility] [address], [place] [address]- 8324 Feb, [facility] [address], [place] [address]- 6558 May, [facility] [address], [place] [address]- 8624 May, [facility] [id number] [address] 3904 Mar, [facility] [address] [id number]- 2076 Jun, [facility] [id number], [place] [address]- 2026 Jun, [facility] [address] [id number] [address]- 7859 May, IMMUNIZATIONS No Known Immunizations SOCIAL HISTORY Never Assessed REASON FOR VISIT Lab results PLAN OF CARE VITAL SIGNS MEDICATIONS Unknown Medications RESULTS No Results PROCEDURES No Known procedures INSTRUCTIONS MEDICATIONS ADMINISTERED No Known Medications MEDICAL (GENERAL) HISTORY Type Description Date Hospitalization History child only 2015
--- OUTSIDE RECORDS SUMMARY | 2018-12-20 07:15 | XMS REPORT ---
Author SISSY Turcios [facility] eClinicalWorks Address Unknown Phone Unavailable Care Team Providers Care Chemistry Associate Name Role Phone SISSY HARPER Unavailable Allergies No Known Allergies Problems Problem Type Condition Code Onset Dates Condition Status Problem Anemia complicating , third trimester O99.013 Active Problem Encounter for supervision of normal first in third trimester Z34.03 Active Medications Medication Code System Code Instructions Start Date End Date Status Dosage Ferrous Sulfate [facility] [id number] (65 Fe) MG Orally Once a day Sep 13, 2015 1 tablet Results No Known Results Summary Purpose eClinicalWorks Submission
--- OUTSIDE RECORDS SUMMARY | 2018-12-20 07:15 | XMS REPORT ---
Author Author REBEKAH RAMIREZ Organization eClinicalWorks Address Unknown Phone Unavailable Care Team Providers Care Strike Warfare/Missile Systems Officer Name Role Phone REBEKAH RAMIREZ CP Unavailable Allergies, Adverse Reactions, Alerts Substance Reaction Event Type N.K.D.A. Info Not Available Non Drug Allergy Problems Problem Type Condition Code Onset Dates Condition Status Assessment Dental examination Z01.20 Active Problem , first, second trimester Z34.02 Active Medications Medication Code System Code Instructions Start Date End Date Status Dosage Complete [facility] [id number] not defined Procedures Procedure Coding System Code Date INTRAORL-PERIAPICAL 1 FILM 05922 CPT-4 D0220 Jun 14, 2015 LTD ORAL EVALUATION - PROBLEM FOCUS CPT-4 D0140 Jun 14, 2015 Vital Signs Date/Time: Jun 14, 2015 Blood Pressure Diastolic 75 mmHg Blood Pressure Systolic 107 mmHg Results No Known Results Summary Purpose eClinicalWorks Submission
--- OUTSIDE RECORDS SUMMARY | 2018-12-20 07:15 | XMS REPORT ---
Author Author SISSY HARPER [facility] eClinicalWorks Address Unknown Phone Unavailable Care Team Providers Care Fisher Troll Line Name Role Phone SISSY HARPER Unavailable Allergies No Known Allergies Problems Problem Type Condition Code Onset Dates Condition Status Assessment , first, second trimester Z34.02 Active Assessment Encounter for immunization Z23 Active Problem , first, second trimester Z34.02 Active Assessment 16 weeks gestation of Z3A.16 Active Medications No Known Medications Procedures Procedure Coding System Code Date Office Visit, Est Pt., Level 3 CPT-4 97466 Jun 14, 2015 No Charge CPT-4 80752 Jun 14, 2015 SPECIMEN HANDLING CPT-4 60488 Jun 14, 2015 CHORIONIC GONADOTROPIN TEST CPT-4 93103 Jun 14, 2015 ASSAY OF ESTRIOL CPT-4 13040 Jun 14, 2015 TRICHOMONAS VAGIN, DIR PROBE CPT-4 36685 Jun 14, 2015 URINE-NO MICRO CPT-4 38910 Jun 14, 2015 VENIPUNCT, ROUTINE* CPT-4 67981 Jun 14, 2015 FLUARIX QUAD (3 & UP)-GSK-2014 CPT-4 75582 Jun 14, 2015 ALPHA-FETOPROTEIN, SERUM CPT-4 58498 Jun 14, 2015 SINGLE IMMUNIZATION ADMIN CPT-4 86593 Jun 14, 2015 INHIBIN A CPT-4 90786 Jun 14, 2015 CULTURE, BACTERIA, OTHER CPT-4 31419 Jun 14, 2015 Vital Signs Date/Time: Jun 14, 2015 Blood Pressure Diastolic 70 mmHg Blood Pressure Systolic 122 mmHg Weight 117.8 lbs Results Name Result Date Reference Range Unit Abnormality Flag TRICHOMONAS (IN HOUSE) Immunizations Vaccine Administration Date FLUARIX QUAD (3 & UP)-GSK-2014Jun 14, 2015 Summary Purpose eClinicalWorks Submission
--- OUTSIDE RECORDS SUMMARY | 2018-12-20 07:15 | XMS REPORT ---
Author Author SHERIE ODOM [facility] Address [address] [place] [address] Care Team Providers Care Needle Polisher Name Role Phone SHERIE ODOM Unavailable PROBLEMS Type Condition ICD9-CM Code FPN30-TY Code Onset Dates Condition Status SNOMED Code Problem anemia O90.81 Active 829438561 Problem Intrahepatic cholestasis K76.89 Active 8447829 ALLERGIES No Information ENCOUNTERS Encounter Location Date Diagnosis [place] [id number] [address] Apr, [address] [address] Apr, Encounter for test, result unknown Z32.00 [facility] [address] [id number] Feb, Dental examination Z01.[address] [address] December, Intrahepatic cholestasis K76.89 [place] [address] [address] Nov, Routine follow-up Z39.2 ; Intrahepatic cholestasis K76.89 and anemia O90.81 [facility] [address] [place] [id number] [place] [address] Oct, 36 weeks gestation of Z3A.36 ; Itching L29.9 and Transaminitis R74.0 [facility] [address] [id number] [place] [address] Oct, Transaminitis R74.0 [place] [address] [address] Oct, Encounter for supervision of normal first in third trimester Z34.03 ; screening for streptococcus B Z36 ; 36 weeks gestation of Z3A.36 and Itching L29.[address] [place] [address] Oct, Encounter for supervision of normal first in third trimester Z34.03 and 35 weeks gestation of Z3A.35 [place] [id number] [place] [address] Sep, Encounter for supervision of normal first in third trimester Z34.03 ; 31 weeks gestation of Z3A.31 and Encounter for immunization Z23 [place] [id number] [place] [address] Aug, [place] [id number] [place] [address] Aug, [place] [id number] [place] [address] Aug, Elevated glucose tolerance test R73.02 [place] [id number] [place] [address] Aug, Diabetes mellitus screening Z13.1 ; Screening, iron deficiency anemia Z13.0 ; Encounter for supervision of normal first in third trimester Z34.03 and 29 weeks gestation of Z3A.29 [place] [address] [id number] [place] [address] Jul, , first, second trimester Z34.02 and 24 weeks gestation of Z3A.24 [place] [address] [place] [id number] [place] [address] Jun, , first, second trimester Z34.02 and 20 weeks gestation of Z3A.20 [place] [address] [place] [address] May, , first, second trimester Z34.02 ; Encounter for immunization Z23 and 16 weeks gestation of Z3A.16 [facility] [address] [id number] [id number] May, Dental examination Z01.20 [facility] [address] [id number] [place] [address] Apr, Supervision of normal first V22.0 [facility] [address] [id number] [place] [address] Mar, Encounter for test V72.40 [facility] [id number] [place] [address] Mar, Pre-conception counseling V26.49 [facility] [address] [id number] [place] [address] Feb, [facility] [address] [id number] [place] [address] Feb, [facility] [address] [place] [id number] [place] [address] Feb, [facility] [address] [place] [address] Feb, [facility] [address] [place] [address] Feb, [facility] [address] [address] May, [facility] [address] [address] May, [facility] [address] [place] [id number] [address] Mar, [facility] [address] [id number] [place] [address] Jun, [facility] [address] [place] [id number] [address] Jun, [facility] [address] [id number] [place] [address] May, IMMUNIZATIONS No Known Immunizations SOCIAL HISTORY Never Assessed REASON FOR VISIT test (walk-in) Blood Test PLAN OF CARE Activity Details Future/Pending Procedure ROUTINE VENIPUNCTURE VITAL SIGNS MEDICATIONS Unknown Medications RESULTS No Results PROCEDURES Procedure Date Ordered Result Body Site VENIPUNCT, ROUTINE* May 10, 2018 CHORIONIC GONADOTROPIN ASSAY May 10, 2018 INSTRUCTIONS MEDICATIONS ADMINISTERED No Known Medications MEDICAL (GENERAL) HISTORY Type Description Date Hospitalization History child only 2015
--- OUTSIDE RECORDS SUMMARY | 2018-12-20 07:15 | XMS REPORT ---
Author Author SISSY HARPER [facility] eClinicalWorks Address Unknown Phone Unavailable Care Team Providers Care [place] Guide Name Role Phone SISSY HARPER Unavailable Allergies No Known Allergies Problems Problem Type Condition Code Onset Dates Condition Status Assessment , first, second trimester Z34.02 Active Assessment 24 weeks gestation of Z3A.24 Active Problem , first, second trimester Z34.02 Active Medications Medication Code System Code Instructions Start Date End Date Status Dosage Complete [facility] [address] not defined Procedures Procedure Coding System Code Date Office Visit, Est Pt., Level 2 CPT-4 32487 Aug 07, 2015 URINE-NO MICRO CPT-4 18953 Aug 07, 2015 Vital Signs Date/Time: Aug 07, 2015 Temperature 98.0 F Weight 131.8 lbs Height 62 in BMI 24.107 Index Blood Pressure Diastolic 76 mmHg Blood Pressure Systolic 110 mmHg Results Name Result Date Reference Range Unit Abnormality Flag UA OB DIP (IN HOUSE) ----Glucose negative 20150807 ----Protein negative [id number] Summary Purpose eClinicalWorks Submission
--- OUTSIDE RECORDS SUMMARY | 2018-12-20 07:15 | XMS REPORT ---
Author Author SISSY HARPER [facility] eClinicalWorks Address Unknown Phone Unavailable Care Team Providers Care Core Checker Name Role Phone SISSY HARPER Unavailable Allergies No Known Allergies Problems Problem Type Condition Code Onset Dates Condition Status Problem Anemia complicating , third trimester O99.013 Active Problem Encounter for supervision of normal first in third trimester Z34.03 Active Medications No Known Medications Results No Known Results Summary Purpose eClinicalWorks Submission
--- OUTSIDE RECORDS SUMMARY | 2018-12-20 07:15 | XMS REPORT ---
Author Author SISSY HARPER [facility] eClinicalWorks Address Unknown Phone Unavailable Care Team Providers Care Beauty Therapist Name Role Phone SISSY HARPER Unavailable Allergies No Known Allergies Problems Problem Type Condition Code Onset Dates Condition Status Assessment , first, second trimester Z34.02 Active Assessment 20 weeks gestation of Z3A.20 Active Problem , first, second trimester Z34.02 Active Medications No Known Medications Procedures Procedure Coding System Code Date Office Visit, Est Pt., Level 2 CPT-4 07455 Jul 10, 2015 URINE-NO MICRO CPT-4 52207 Jul 10, 2015 Vital Signs Date/Time: Jul 10, 2015 Temperature 97.0 F Weight 124.0 lbs Height 62 in BMI 22.68 Index Blood Pressure Diastolic 68 mmHg Blood Pressure Systolic 112 mmHg Results Name Result Date Reference Range Unit Abnormality Flag UA OB DIP (IN HOUSE) ----Glucose negative 20150710 ----Protein negative [id number] Summary Purpose eClinicalWorks Submission
--- OUTSIDE RECORDS SUMMARY | 2018-12-20 07:15 | XMS REPORT ---
Author Author SISSY HARPER [facility] eClinicalWorks Address Unknown Phone Unavailable Care Team Providers Care Anesthesiology Crna Name Role Phone SISSY HARPER CP Unavailable Allergies, Adverse Reactions, Alerts Substance Reaction Event Type N.K.D.A. Info Not Available Non Drug Allergy Problems Problem Type Condition Code Onset Dates Condition Status Assessment Supervision of normal first V22.0 Active Problem Supervision of normal first V22.0 Active Medications No Known Medications Procedures Procedure Coding System Code Date ASSAY THYROID STIM HORMONE CPT-4 84878 May 09, 2015 No Charge CPT-4 78040 May 09, 2015 RBC ANTIBODY SCREEN CPT-4 69198 May 09, 2015 Office Visit, Est Pt., Level 3 CPT-4 73028 May 09, 2015 BLOOD TYPING, ABO CPT-4 20862 May 09, 2015 VENIPUNCT, ROUTINE* CPT-4 84572 May 09, 2015 RUBELLA ANTIBODY CPT-4 02870 May 09, 2015 COMPLETE CBC W/AUTO DIFF WBC CPT-4 04159 May 09, 2015 BLOOD TYPING, RH (D) CPT-4 98626 May 09, 2015 URINE CULTURE/COLONY COUNT CPT-4 23569 May 09, 2015 Vital Signs Date/Time: May 09, 2015 Temperature 97.0 F Weight 113.6 lbs Height 62 in BMI 20.778 Index Blood Pressure Diastolic 70 mmHg Blood Pressure Systolic 106 mmHg Cardiac Monitoring Heart Rate 78 bpm Results Name Result Date Reference Range Unit Abnormality Flag SYPHILIS (STATE) ROUTINE VENIPUNCTURE TSH () Summary Purpose eClinicalWorks Submission
--- OUTSIDE RECORDS SUMMARY | 2018-12-20 07:16 | XMS REPORT | Continuity of Care Document ---
Author Organization Unknown Address Unknown Allergies Active Description Code Type Severity Reaction Onset Reported/Identified Relationship to Patient Clinical Status Yes No Known Drug Allergies [id number] Drug Allergy Unknown N/A 10/31/2015 Medications There is no data. Problems Date Dx Coded Attending Type Code Diagnosis Diagnosed By 06/15/2010 SISSY HARPER MD V74.1 SCREENING EXAMINATION FOR PULMONARY TUBERCULOSIS 06/17/2010 SISSY HARPER MD N 795.5 POSITIVE PPD 07/08/2010 SISSY HARPER MD 795.5 NONSPECIFIC REACTION TO TUBERCULIN SKIN TEST WITHOUT ACTIVE TUBERCULOSIS 03/19/2012 SISSY HARPER MD N 626.0 AMENORRHEA 02/21/2014 SISSY HARPER MD N 782.2 LOCALIZED SUPERFICIAL SWELLING MASS OR LUMP 06/20/2015 SISSY HARPER MD Ot 782.2 06/29/2015 SISSY HARPER MD Ot Z34.02 07/04/2015 SISSY HARPER MD Ot Z34.02 08/07/2015 SISSY HARPER MD Ot Z34.02 08/07/2015 SISSY HARPER MD Ot 782.2 08/07/2015 SISSY HARPER MD Ot Z34.02 08/07/2015 SISSY HARPER MD Ot 782.2 08/07/2015 SISSY HARPER MD Ot Z34.02 08/21/2015 SISSY HARPER MD Ot Z34.02 09/21/2015 SISSY HARPER MD Ot R73.02 09/21/2015 SISSY HARPER MD Ot Z34.02 09/26/2015 SISSY HARPER MD Ot R73.02 09/26/2015 SISSY HARPER MD Ot Z34.02 10/02/2015 SISSY HARPER MD Ot Z34.02 10/02/2015 SISSY HARPER MD Ot Z34.02 10/03/2015 SISSY HARPER MD Ot R73.02 10/03/2015 SISSY HARPER MD Ot Z34.02 10/31/2015 SISSY HARPER MD Ot Z34.02 10/31/2015 SISSY HARPER MD Ot Z34.02 10/31/2015 SISSY HARPER MD Ot R73.02 10/31/2015 SISSY HARPER MD Ot Z34.02 11/01/2015 SISSY HARPER MD Ot R74.0 11/04/2015 SISSY HARPER MD Ot D62 ACUTE POSTHEMORRHAGIC ANEMIA 11/04/2015 SISSY HARPER MD Ot K83.1 OBSTRUCTION OF BILE DUCT 11/04/2015 SISSY HARPER MD Ot O12.13 GESTATIONAL PROTEINURIA, THIRD TRIMESTER 11/04/2015 SISSY HARPER MD Ot O26.613 LIVER AND BILIARY TRACT DISORD IN PREGNA 11/04/2015 SISSY HARPER MD Ot O60.14X0 LABOR THIRD TRI W DELIVE 11/04/2015 SISSY HARPER MD Ot O69.81X0 LABOR AND DEL COMP BY CORD AROUND NECK, 11/04/2015 SISSY HARPER MD Ot O70.1 SECOND DEGREE PERINEAL LACERATION DURING 11/04/2015 SISSY HARPER MD Ot O76 ABNLT IN HEART RATE AND RHYTHM COM 11/04/2015 SISSY HARPER MD Ot O90.81 ANEMIA OF THE PUERPERIUM 11/04/2015 SISSY HARPER MD Ot Z37.0 SINGLE LIVE 11/04/2015 SISSY HARPER MD Ot Z3A.36 36 WEEKS GESTATION OF 11/06/2015 SISSY HARPER MD Ot R74.0 11/14/2015 SISSY HARPER MD Ot R74.0 01/09/2016 SISSY HARPER MD Ot R74.0 NONSPEC ELEV OF LEVELS OF TRANSAMNS LA 01/09/2016 SISSY HARPER MD Ot R74.0 NONSPEC ELEV OF LEVELS OF TRANSAMNS LA 12/23/2016 SISSY HARPER MD, Ot 782.2 LOCAL SUPRFICIAL SWELLNG 12/23/2016 SISSY HARPER MD, Ot R74.0 NONSPEC ELEV OF LEVELS OF TRANSAMNS LA 07/09/2018 SISSY HARPER MD, Ot Z34.82 ENCOUNTER FOR SUPRVSN OF NORMAL PREGNANC 07/09/2018 SISSY HARPER MD, Ot Z3A.15 15 WEEKS GESTATION OF Procedures Code [place] [address] US SOFT TISSUE (SPECIFY LOCATION) 02/21/2014 [id number] REPAIR PERINEUM MUSCLE, OPEN APPROACH 11/02/2015 [id number] DELIVERY OF PRODUCTS OF CONCEPTION, EXTE 11/02/2015 Results Test Result Range TEST, SERUM (QUAL) - 05/10/18 15:12 HCG, TOTAL, QL POSITIVE See Note: CBC - 06/07/18 15:02 WHITE BLOOD CELL COUNT 11.6 Thousand/uL 3.8-10.8 RED BLOOD CELL COUNT 4.30 Million/uL 3.80-5.10 HEMOGLOBIN 13.3 g/dL 11.7-15.5 HEMATOCRIT 38.9 % 35.0-45.0 MCV 90.5 fL 80.0-100.0 MCH 30.9 pg 27.0-33.0 MCHC 34.2 g/dL 32.0-36.0 RDW 12.8 % 11.0-15.0 PLATELET COUNT 275 Thousand/uL 140-400 MPV 10.3 fL 7.5-12.5 ABSOLUTE NEUTROPHILS 8468 cells/uL 4592-3359 ABSOLUTE LYMPHOCYTES 2181 cells/uL 850-3900 ABSOLUTE MONOCYTES 789 cells/uL 200-950 ABSOLUTE EOSINOPHILS 128 cells/uL 15-500 ABSOLUTE BASOPHILS 35 cells/uL 0-200 NEUTROPHILS 73 % NRG LYMPHOCYTES 18.8 % NRG MONOCYTES 6.8 % NRG EOSINOPHILS 1.1 % NRG BASOPHILS 0.3 % NRG BLOOD TPYE/RH FACTOR - 06/07/18 15:02 ABO GROUP O NRG RH TYPE RH(D) POSITIVE NRG ANTIBODY SCREEN - 06/07/18 15:02 ANTIBODY SCREEN, RBC W/REFL ID, TITER AND AG NO ANTIBODIES DETECTED NRG TSH - 06/07/18 15:02 TSH 2.18 mIU/L NRG RUBELLA IMMUNE STATUS - 06/07/18 15:02 RUBELLA ANTIBODY (IGG) 20.60 index NRG CULTURE, URINE - 06/07/18 15:02 CULTURE, URINE, ROUTINE SEE NOTE NRG CULTURE, GENITAL - 06/07/18 15:02 CULTURE, GENITAL SEE NOTE NRG SUREPATH PAP RFX HR HPV - 06/07/18 15:02 CLINICAL INFORMATION: NRG LMP: 03/14/18 NRG PREV. PAP: NL NRG PREV. BX: NRG SOURCE: Cervix NRG STATEMENT OF ADEQUACY: NRG INTERPRETATION/RESULT: NRG EDGE GRINDER MACHINE: NRG COMMENT NRG PENTA SCREEN - 07/05/18 14:58 Maternal Weight 135 lbs NRG Est'd Date of Delivery 12/19/2018 NRG RISHI Determined by LMP NRG Mother's Ethnic Origin NRG Number of Fetuses 1 NRG Insulin Depend Diabetic NO NRG Repeat Specimen NO NRG Hx Of Neural Tube Defects NO NRG Prev Down Synd NO NRG Donor Egg NO NRG Donor Age: Egg Retrieval NOT GIVEN NRG Cigarette smoker NO NRG INTERPRETATION: SEE NOTE NRG Risk for ONTD <1:5000 NRG Age Risk Down Syndrome 1:764 NRG CEE Down Syndrome Risk 1:595 <1:270 CEE Trisomy 18 Risk <1:5000 <1:100 Calc'd Gestational Age 16.1 NRG AFP, Serum 21.4 ng/mL NRG AFP MoM 0.64 NRG hCG, Serum 49.1 IU/mL NRG hCG MoM 1.36 NRG Estriol, Free 0.52 ng/mL NRG Estriol MoM 0.60 NRG Inhibin A, Dimeric 171 pg/mL NRG Inhibin A MoM 1.00 NRG h-hCG, Serum 35.1 mcg/L NRG h-hCG MoM 1.19 NRG Date of 1990 NRG Collection Date 07/05/2018 NRG GLUCOSE DISHA 3 HOUR - 10/25/18 12:37 TIME 1 0926 NRG SPECIMEN 1 90 mg/dL 65-99 TIME 2 1030 NRG SPECIMEN 2 158 mg/dL NRG TIME 3 1130 NRG SPECIMEN 3 120 mg/dL NRG TIME 4 1230 NRG SPECIMEN 4 94 mg/dL NRG COMMENT NRG CULTURE, GROUP B STREP (VAGINAL) - 11/18/18 17:27 STREPTOCOCCUS, GROUP B CULTURE SEE NOTE NRG Encounters ACCT No. Visit Date/Time Discharge Status Pt. Type Provider Facility Loc./Unit Complaint [id number] 12/10/2018 14:20:00 12/10/2018 23:59:59 CLS Outpatient SISSY HARPER MD [facility] [id number] 11/18/2018 14:20:00 Document Registration [id number] 10/25/2018 09:40:00 Document Registration [id number] 07/05/2018 14:20:00 Document Registration [id number] 06/07/2018 14:20:00 Document Registration [id number] 05/10/2018 15:00:00 Document Registration [id number] 02/21/2014 09:00:00 02/21/2014 23:59:59 CLS Outpatient SSISY HARPER MD [id number] 07/07/2018 15:28:00 07/07/2018 23:59:59 CLS Outpatient SISSY HARPER MD [facility] RAD NORMAL IN MULTIGRAVIDA [id number] 10/31/2015 20:43:00 11/04/2015 14:00:00 DIS Inpatient SISSY HARPER MD [facility] LDRP INDUCTION [id number] 10/31/2015 16:34:00 10/31/2015 23:59:59 CLS Outpatient SISSY HARPER MD [facility] LAB TRANSAMINILLS, [id number] 09/20/2015 06:53:00 09/20/2015 23:59:59 CLS Outpatient SISSY HARPER MD [facility] RAD [id number] 08/07/2015 10:21:00 08/07/2015 23:59:59 CLS Outpatient SISSY HARPER MD [facility] RAD [id number] 06/20/2015 15:27:00 06/20/2015 23:59:59 CLS Outpatient SISSY HARPER MD [facility] RAD [id number] 02/24/2014 11:20:00 02/24/2014 23:59:59 CLS Outpatient SISSY HARPER MD [facility] RAD RT AXILLARY LUMP
--- NOTE | 2018-12-20 07:26 | NUR ---
SVE DONE. NOTIFIED, NEW ORDERS RECEIVED. PLANS TO BE IN SHORTLY AFTER 0800.
[2018-12-20] MEDS ORDERED: LACTATED RINGERS 1,000 ML IV SCH (07:30)
[2018-12-20] MEDS ORDERED: MISOPROSTOL 100 MCG (CYTOTEC) TAB PV ONE (07:30)
[2018-12-20] MEDS ORDERED: MINERAL OIL CONCENTRATE 99.9% 15 ML UDC TOP PRN (07:45)
[2018-12-20 08:02] LABS: BASOPHILS % (AUTO) 0 % (0-10); EOSINOPHILS # (AUTO) 0.1 10^3/uL (0.0-0.3); EOSINOPHILS % (AUTO) 1 % (0-10); HEMATOCRIT 41 % (35-52); HEMOGLOBIN 13.4 G/DL (11.5-16.0); LYMPHOCYTES % (AUTO) 26 % (12-44); MEAN CORPUSCULAR HEMOGLOBIN 29 PG (25-34); MEAN CORPUSCULAR HGB CONC 33 G/DL (32-36); MEAN CORPUSCULAR VOLUME 88 FL (80-99); MEAN PLATELET VOLUME 10.6 FL (7.4-10.4); MONOCYTES # (AUTO) 0.7 X 10^3 (0.0-1.0); MONOCYTES % (AUTO) 9 % (0-12); NEUTROPHILS # (AUTO) 4.8 X 10^3 (1.8-7.8); NEUTROPHILS % (AUTO) 63 % (42-75); PLATELET COUNT 234 10^3/uL (130-400); RED CELL DISTRIBUTION WIDTH 14.9 % (10.0-14.5); WHITE BLOOD COUNT 7.6 10^3/uL (4.3-11.0)
[2018-12-20] MEDS ORDERED: OXYTOCIN/NORMAL SALINE 500 ML IV ONE (08:06)
[2018-12-20] MEDS: D5 LR IV SOLUTION 1,000 ML IV SCH ×2 (08:13→12:33)
--- NOTE | 2018-12-20 08:16 | History & Physical-OB ---
OB - Chief Complaint & HPI Date/Time Date of Admission: Date of Admission: December 20, 2018 at 07:01 Date seen by a Provider: December 20, 2018 Time Seen by a Provider: 08:10 Chief Complaint/History OB-Reason for Admission/Chief: Induction of Labor Hx : 2 Hx Para: 0101 Expected Date of Delivery: December 19, 2018 Gestational Age in Weeks: 40 Gestational Age in Days: 1 Indication for induction: post dates History of Labs O+, antibody neg, RI. GC/chlamydia neg. RPR/HIV/HepB NR. 1 hr glucola high, 3 hr normal, GBS neg. Allergies and Home Medications Allergies Coded Allergies: No Known Drug Allergies (Unverified , 10/31/15) Home Medications Vit W-Ca,Fe,FA(<1 mg) 1 Each Tablet, 1 EACH PO DAILY, (Reported) Patient Home Medication List Home Medication List Reviewed: Yes OB - History Hx of Present Care: Yes Ultrasounds: Abnormal US findings (Small for GA- at 15 weeks and 20 weeks 2%, follow up at 31 weeks 61%.) Obstetrical Complications: None Medical Complications: None Information Induced Hypertension: No Maternal Gestational Diabetes: No Hemorrhage: No Obstetrical History Hx : 2 Hx Para: 1 Hx # Term Pregnancies: 0 Hx # Pregnancies: 1 Number of Living Children: 1 Hx Termination: No Hx Multiple Gestation: No Hx Ectopic : No Hx Stillbirth: No Hx Complication: Yes (Intrahepatic cholestasis with first ) Hx Induced Hypertens: No Hx Maternal Gestational Diabet: No Hx Hemorrhage: No Delivery History Hx Dystocia: No Hx Forceps Assisted Delivery: No Hx Vacuum Extraction Assisted: No Hx Placenta Abnormality: No Hx Distress: No Hx Large For Gestational Age I: No Hx Small for Gestational Age I: No Hx Section: No Hx Vaginal Delivery Post C-Sec: No Hx Blood Disorders: No Adverse Rxn to Tranfusion: No Patient Past Medical History PMHx: Denies significant history Social History/Family History HIV/AIDS: No Recent Infectious Disease Expo: No Sexually Transmitted Disease: No Alcohol Use: Denies Use Recreational Drug Use: No Smoking Cessation: Never smoker Immunizations Hepatitis A: Yes Hepatitis B: Yes Date of Influenza Vaccine: Jun 01, 2015 Rubella: immune RPR/VDRL: Negative GBS Status: Negative HBsAG: Negative OB - Admission Exam Physical Exam HEENT: NCAT Extremities: Edema Cervical Dilatation: 3cm Effacement: 50% Station: -3 Membranes: Intact Heart Rate: 140's Accelerations: Accelerations Present Decelerations: No Decelerations Short Term Variability: Present Filling Mixer Variability: Average (6-25) Contractions on Admission: < 5 Minutes Apart Intensity: Mild Michel Scoring Tool (Modified) Dilation (cm): 3-4cm (2) Effacement (%): 31-51% (1) Descent/Station: -3 (0) Cervix Consistency: Medium(1) Cervix Position: Posterior (0) Add 1 point for: Each previous vaginal delivery (1) Michel Score: 5 Labs Laboratory Tests Test 12/20/18 07:42 Range/Units White Blood Count 7.6 4.3-11.0 10^3/uL Red Blood Count 4.62 4.35-5.85 10^6/uL Hemoglobin 13.4 11.5-16.0 G/DL Hematocrit 41 35-52 % Mean Corpuscular Volume 88 80-99 FL Mean Corpuscular Hemoglobin 29 25-34 PG Mean Corpuscular Hemoglobin Concent 33 32-36 G/DL Red Cell Distribution Width 14.9 H 10.0-14.5 % Platelet Count 234 130-400 10^3/uL Mean Platelet Volume 10.6 H 7.4-10.4 FL Neutrophils (%) (Auto) 63 42-75 % Lymphocytes (%) (Auto) 26 12-44 % Monocytes (%) (Auto) 9 0-12 % Eosinophils (%) (Auto) 1 0-10 % Basophils (%) (Auto) 0 0-10 % Neutrophils # (Auto) 4.8 1.8-7.8 X 10^3 Lymphocytes # (Auto) 2.0 1.0-4.0 X 10^3 Monocytes # (Auto) 0.7 0.0-1.0 X 10^3 Eosinophils # (Auto) 0.1 0.0-0.3 10^3/uL Basophils # (Auto) 0.0 0.0-0.1 10^3/uL OB - Assessment/Plan/Diagnosis Assessment Assessment: induction of labor Admission Dx Induction of labor 40 weeks gestation Admission Status: Inpatient Order (span 2 midnights) Reason for Inpatient Admission: Induction, labor, delivery and course Plan Plan: Induction Induction Method: per Pitocin Protocol SISSY HARPER MD December 20, 2018 08:16
[2018-12-20] MEDS ORDERED: OXYTOCIN/NORMAL SALINE 500 ML IV SCH ×2 (09:15→14:09)
[2018-12-20] MEDS ORDERED: LIDOCAINE 1% INJ 20 ML 20 ML VIAL ONE (11:22)
--- NOTE | 2018-12-20 12:45 | Labor Progress Note ---
Labor Progress Note Labor Progress Note Date Seen by Provider: December 20, 2018 Time Seen by Provider: 12:43 Subjective: Pt denies complaints. Objective: Cervical exam: /-2 Presentation: vertex heart tones: 140 beats per minute, moderate variability, early decels Tocometer: 5 ctx/10 minutes Assessment/Plan: Marie Melendez is a 28 /Para 2 / 1,Gestational Age (wks)40 here for IOL. CEFM/TOCO Continue pitocin/AROM done with bloodstained fluid return Anesthesia: none Anticipate vaginal delivery. Vitals - Labs Vital Signs - I&O Vital Signs Date Time Temp Pulse Resp B/P (MAP) Pulse Ox O2 Delivery O2 Flow Rate FiO2 12/20/18 08:35 71 18 117/79 (92) Room Air 12/20/18 08:20 75 18 113/72 (86) Room Air 12/20/18 07:20 97.9 79 18 121/74 (90) Room Air Labs Laboratory Tests 12/20/18 07:42: White Blood Count 7.6, Red Blood Count 4.62, Hemoglobin 13.4, Hematocrit 41, Mean Corpuscular Volume 88, Mean Corpuscular Hemoglobin 29, Mean Corpuscular Hemoglobin Concent 33, Red Cell Distribution Width 14.9H, Platelet Count 234, Mean Platelet Volume 10.6H, Neutrophils (%) (Auto) 63, Lymphocytes (%) (Auto) 26 , Monocytes (%) (Auto) 9, Eosinophils (%) (Auto) 1, Basophils (%) (Auto) 0, Neutrophils # (Auto) 4.8, Lymphocytes # (Auto) 2.0, Monocytes # (Auto) 0.7, Eosinophils # (Auto) 0.1, Basophils # (Auto) 0.0 SISSY HARPER MD December 20, 2018 12:45
[2018-12-20] MEDS ORDERED: CATHETER FLUSH 10 ML SYR IV SCH ×2 (14:00→22:00)
--- NOTE | 2018-12-20 14:01 | OB Labor & Delivery Record ---
Vag Delivery Note Vag Delivery Note Date of Delivery: 12/20/18 Preoperative Diagnosis: Marie Melendez is a 28 /Para 2 / 1, Gestational Age (wks)40with 1 day Postoperative Diagnosis: Same Surgeon: SISSY HARPER Anesthesia: None Delivery Type: Spontaneous vaginal delivery Findings: [] Viable male infant, apgars 8/9, weight 8#1 Lacerations: small first degree perineal Intact placenta with 3 vessel cord. Compound presentation with hand, nuchal x 1 , delivered through, no body cord or shoulder dystocia Estimated Blood Loss: 200 ml Complications: None Condition: Stable Description of Procedure: The patient is a 28 year old female who presented for IOL for approaching postdates. She was admitted and informed consent was obtained. Her labor course was unremarkable. She progressed to complete dilatation and began to push. She was then set up for delivery. The infant's head was delivered atraumatically in the SAL position. The head delivered at 1327, shoulder did not deliver immediately, so she was placed in McRobert's position and then hand delivered next to chin, after which the shoulders and remainder of the infant's body were then delivered without difficulty at 1328. Upon delivery, the was placed on maternal abdomen. The cord was doubly clamped and cut and the infant remained vigorous on maternal abdomen. An intact placenta with 3-vessel cord delivered via [place] and there was found to be minimal bleeding.~ Vigorous fundal massage was performed and the fundus was found to be firm. IV oxytocin was given. Examination of the vagina and perineum revealed a small first degree hemostatic laceration not requiring repair. Following the delivery , sponge, instrument and needle counts were correct. Mom and baby were both in stable condition in the labor suite. Vitals - Labs Vital Signs - I&O Vital Signs Date Time Temp Pulse Resp B/P (MAP) Pulse Ox O2 Delivery O2 Flow Rate FiO2 12/20/18 09:30 68 18 111/70 (84) Room Air 12/20/18 08:35 71 18 117/79 (92) Room Air 12/20/18 08:20 75 18 113/72 (86) Room Air 12/20/18 07:20 97.9 79 18 121/74 (90) Room Air Labs Laboratory Tests 12/20/18 07:42: White Blood Count 7.6, Red Blood Count 4.62, Hemoglobin 13.4, Hematocrit 41, Mean Corpuscular Volume 88, Mean Corpuscular Hemoglobin 29, Mean Corpuscular Hemoglobin Concent 33, Red Cell Distribution Width 14.9H, Platelet Count 234, Mean Platelet Volume 10.6H, Neutrophils (%) (Auto) 63, Lymphocytes (%) (Auto) 26 , Monocytes (%) (Auto) 9, Eosinophils (%) (Auto) 1, Basophils (%) (Auto) 0, Neutrophils # (Auto) 4.8, Lymphocytes # (Auto) 2.0, Monocytes # (Auto) 0.7, Eosinophils # (Auto) 0.1, Basophils # (Auto) 0.0 SISSY HARPER MD December 20, 2018 14:01
[2018-12-20] MEDS ORDERED: BENZOCAINE/MENTHOL (DERMOPLAST) 56 ML CAN TP PRN (14:15)
[2018-12-20] MEDS ORDERED: WITCH HAZEL(TUCKS) 40 EA JAR TOP PRN (14:15)
[2018-12-20] MEDS: IBUPROFEN 600 MG (MOTRIN) TAB PO SCH ×2 (15:09→20:58)
--- NOTE | 2018-12-20 16:39 | NUR ---
REFER TO LABOR FLOW SHEET.
--- NOTE | 2018-12-20 16:50 | NUR ---
PT TRANSFERRED FROM -320 TO -310 VIA AMBULATORY IN STABLE CONDITION ACC BY THIS RN, S/O AND . TEACHING DONE RE: ROOM SURROUNDINGS, CALL LIGHT, ETC. PT DENIES ANY NEEDS OR QUESTIONS AT THIS TIME. PT REMAINS UP IN ROOM, TENDING TO .
--- NOTE | 2018-12-20 17:56 | NUR ---
PT REQUESTING TO TAKE A SHOWER, SHOWER SET UP, IV COVERED. PT . PACIFIER PROVIDED PER REQUEST. FAMILY AT THE BEDSIDE. NO FURTHER NEEDS VOICED.
[2018-12-20] MEDS: ACETAMINOPHEN 500 MG TAB (TYLENOL) PO SCH (20:58)
--- NOTE | 2018-12-20 21:00 | NUR ---
pt sitting up in bed. family in room. assessment completed. pt denies any needs at this time. will continue to monitor.
[2018-12-21 02:00] VITALS: BP 93/60
[2018-12-21] MEDS: IBUPROFEN 600 MG (MOTRIN) TAB PO SCH ×2 (02:15→12:30)
[2018-12-21 06:22] VITALS: BP 110/74
[2018-12-21 06:23] LABS: BASOPHILS % (AUTO) 0 % (0-10); EOSINOPHILS # (AUTO) 0.1 10^3/uL (0.0-0.3); EOSINOPHILS % (AUTO) 1 % (0-10); HEMATOCRIT 36 % (35-52); HEMOGLOBIN 11.6 G/DL (11.5-16.0); LYMPHOCYTES # (AUTO) 2.5 X 10^3 (1.0-4.0); LYMPHOCYTES % (AUTO) 20 % (12-44); MEAN CORPUSCULAR HEMOGLOBIN 29 PG (25-34); MEAN CORPUSCULAR HGB CONC 33 G/DL (32-36); MEAN CORPUSCULAR VOLUME 90 FL (80-99); MEAN PLATELET VOLUME 10.5 FL (7.4-10.4); MONOCYTES # (AUTO) 1.1 X 10^3 (0.0-1.0); MONOCYTES % (AUTO) 9 % (0-12); NEUTROPHILS # (AUTO) 8.8 X 10^3 (1.8-7.8); NEUTROPHILS % (AUTO) 70 % (42-75); PLATELET COUNT 214 10^3/uL (130-400); RED CELL DISTRIBUTION WIDTH 15.2 % (10.0-14.5); WHITE BLOOD COUNT 12.5 10^3/uL (4.3-11.0)
[2018-12-21] MEDS: ACETAMINOPHEN 500 MG TAB (TYLENOL) PO SCH (06:24)
[2018-12-21] MEDS ORDERED: PRENATAL VITAMIN 1 EA TAB PO SCH (07:00)
--- NOTE | 2018-12-21 07:40 | NUR ---
up moving in room, no s/s of distress noted. denies need. s/o at bedside. reviewed circumcision consent with parents. verbalized understanding.
[2018-12-21] MEDS ORDERED: IBUP-844 PO (08:07)
--- NOTE | 2018-12-21 08:09 | Discharge Instructions ---
Discharge Inst-Women's Serv Depart Medications New, Converted or Re-Newed RX: Transmitted to Pharmacy Final Diagnosis Term spontaneous vaginal delivery. Follow Up/Instructions Goal/Follow Up: [address] Nathan Activity Activity: Activity as Tolerated Driving Instructions: You May Drive NO SMOKING: NO SMOKING Nothing Inside Vagina: No Douching, No [place], No Tampons Diet Discharge Diet: No Restrictions Symptoms to Report to : Bleeding Excessive, Pain Increased, Fever Over 101 Degrees F For Any Problems or Questions: Contact Your Physician Copies To 1: SISSY NATHAN MD, KATRINA M MD December 21, 2018 08:09
--- NOTE | 2018-12-21 08:14 | Short Stay Summary ---
History of Present Illness History of Present Illness Reason for visit/HPI Term induction of labor. Date of Admission December 20, 2018 at 07:01 Date of Discharge December 21, 2018. Time Seen by Provider: 08:11 Attending Physician Sissy Nathan MD Admitting Physician Sissy Nathan MD Consult Allergies and Home Medications Allergies Coded Allergies: No Known Drug Allergies (Unverified , 10/31/15) Home Medications Ibuprofen 600 Mg Tablet, 600 MG PO Q6HR PRN for BREAKTHROUGH PAIN Prescribed by: MAYA DAVIS on 12/21/18 0807 Vit W-Ca,Fe,FA(<1 mg) 1 Each Tablet, 1 EACH PO DAILY, (Reported) Patient Home Medication List Home Medication List Reviewed: Yes Past Rfotibb-Zqndal-Cwjtux Hx Patient Social History Alcohol Use: Denies Use Recreational Drug Use: No Physical Abuse Screen: No Sexual Abuse: No Recent Hopitalizations: No Recent Infectious Disease Expo: No Immunizations Up To Date Pediatric: Yes Date of Influenza Vaccine: Jun 01, 2015 Seasonal Allergies Seasonal Allergies: No Surgeries No Respiratory No Cardiovascular No Neurological No Reproductive System Expected Date of Delivery: December 19, 2018 Hx : 2 Hx Para: 1 Hx Reproductive Disorders: No Sexually Transmitted Disease: No HIV/AIDS: No Female Reproductive Disorders: Denies Genitourinary No Gastrointestinal No Musculoskeletal No Endocrine History of Endocrine Disorders: No HEENT History of HEENT Disorders: No Cancer No Psychosocial History of Psychiatric Problem: No Integumentary History of Skin or Integumenta: No Blood Transfusions History of Blood Disorders: No Adverse Reaction to a Blood Tr: No Family Medical History Family Hx: Hypercholesterolemia Kidney disease Review of Systems Constitutional: No chills, No fever Genitourinary: No discharge, No dysuria Physical Exam Vital Signs Vital Signs - First Documented 12/20/18 07:20 Temp 97.9 Pulse 79 Resp 18 B/P (MAP) 121/74 (90) O2 Delivery Room Air Capillary Refill : Height, Weight, BMI Height: 5'2.00" Weight: 161lbs. 8.0oz. 73.487406zs; 29.5 BMI Method: General Appearance: No Apparent Distress HEENT: PERRL/EOMI Neck: Full Range of Motion Gastrointestinal: Soft (fundus firm at umbilicus) Extremity: No Calf Tenderness Skin: Normal Color Clinical Quality Measures DVT/VTE Risk/Contraindication: Risk Factor Score Per Nursin RFS Level Per Nursing on Admit: 1=Low/No VTE PPX Short Stay Diagnosis Discharge Diagnosis-Short Stay Final Discharge Diagnosis: Term spontaneous vaginal delivery. Conclusion Labs Laboratory Tests 12/21/18 05:42: White Blood Count 12.5H, Red Blood Count 3.96L, Hemoglobin 11.6, Hematocrit 36, Mean Corpuscular Volume 90, Mean Corpuscular Hemoglobin 29, Mean Corpuscular Hemoglobin Concent 33, Red Cell Distribution Width 15.2H, Platelet Count 214, Mean Platelet Volume 10.5H, Neutrophils (%) (Auto) 70, Lymphocytes (%) (Auto) 20 , Monocytes (%) (Auto) 9, Eosinophils (%) (Auto) 1, Basophils (%) (Auto) 0, Neutrophils # (Auto) 8.8H, Lymphocytes # (Auto) 2.5, Monocytes # (Auto) 1.1H, Eosinophils # (Auto) 0.1, Basophils # (Auto) 0.0 Conclusion/Plan Home today. Copy Copies To 1: SISSY NATHAN MD, KATRINA M MD December 21, 2018 08:14
[2018-12-21 12:30] VITALS: BP 116/62
--- NOTE | 2018-12-21 12:40 | NUR ---
infant. reports trouble with feeds since circumcision. consulted for assistance with latching infant for feeding. denies further need.
--- NOTE | 2018-12-21 16:23 | NUR ---
ARMANDO BIRD demonstrates understanding of discharge instructions and accurately returns instructions upon questioning. Copy of Post-Discharge Instructions and Medication Discharge Instructions given to patient. ARMANDO BIRD is able to manage continuing needs after discharge. Patients belongings returned to patient. Skin dry and intact; no breakdown noted. Patient discharged from [facility] on 12-21-18 at 1623. ARMANDO BIRD left floor via w/c, accompanied by staff.
== END 2018-12-21 16:23 | disposition home or self-care (01) | DRG 807 ==
LOC: LDRP 07:01
PROVIDERS: ADMIT Family Medicine; ATTEND Family Medicine
PROC: 10E0XZZ Delivery of Products of Conception, External Approach (ICD-10-PCS; principal; 2018-12-20)
DX: O64.4XX0 Obstructed labor due to shoulder presentation, not applicable or unspecified (principal); O69.81X0 Labor and delivery complicated by cord around neck, without compression, not applicable or unspecified; O48.0 Post-term pregnancy; Z3A.40 40 weeks gestation of pregnancy; Z37.0 Single live birth
CPT/HCPCS: 36415; 85025; 86850; 86900; 86901

== ENCOUNTER 2022-12-15 15:56 | Outpatient (CLI) | payer BC, OTHER ==
[~2022-12-15] VITALS: Ht 159 cm; Wt 68.0 kg
[~2022-12-15 15:56] MED LIST changes: +IBUP-844 PO
[2022-12-15] MEDS ORDERED: LEVO75CA5 PO (16:15)
[2022-12-15 17:17] VITALS: BP 108/70
--- NOTE | 2022-12-17 13:47 | Physician Query-Final Dx ---
GILBERTO,12/17/22 1347: Clinic Account Progress/Dx Physician Query: Please give diagnosis Please include # weeks gestation Date of Service December 15, 2022 at 15:56 SHERIE ODOM DO 12/18/22 1816: Clinic Account Progress/Dx DIAGNOSIS: Diagnosis 30 wk GA stepan GILBERTO,AugDecember 17, 2022 13:47 SHERIE ODOM DO December 18, 2022 18:16
== END 2022-12-15 20:40 | disposition home or self-care (01) ==
LOC: LDRP 15:56 → WSo 15:56
PROVIDERS: ATTEND Family Medicine
DX: Z34.93 Encounter for supervision of normal pregnancy, unspecified, third trimester (principal); Z3A.30 30 weeks gestation of pregnancy
CPT/HCPCS: 99213

== ENCOUNTER 2023-02-05 02:05 | Outpatient (CLI) | payer BC ==
[~2023-02-05] VITALS: Ht 160 cm; Wt 73.1 kg
[~2023-02-05 02:05] MED LIST changes: +LEVO75CA5 PO
[2023-02-05 02:36] LABS: BILIRUBIN,URINE NEGATIVE (NEGATIVE); COLOR,URINE YELLOW; GLUCOSE, URINE (UA) NEGATIVE (NEGATIVE); KETONES,URINE TRACE (NEGATIVE); LEUKOCYTE ESTERASE ,URINE 3+ (NEGATIVE); NITRITE,URINE NEGATIVE (NEGATIVE); PROTEIN,URINE TRACE (NEGATIVE)
[2023-02-05 02:39] VITALS: BP 116/70
[2023-02-05 02:48] LABS: BACTERIA,URINE MODERATE /HPF; CLARITY,URINE SL CLOUDY; RBC,URINE 0-2 /HPF; WBC,URINE 25-50 /HPF
[2023-02-05 04:36] VITALS: BP 104/56
--- NOTE | 2023-02-06 07:56 | Physician Query-Final Dx ---
GILBERTO02/06/23 0756: Clinic Account Progress/Dx Physician Query: Please give diagnosis Please include # weeks gestation Date of Service Feb 05, 2023 at 02:05 SISSY HARPER MD 02/06/23 0856: Clinic Account Progress/Dx DIAGNOSIS: Diagnosis Term intruaterine 38 weeks gestation Contractions without active labor Negative rupture of membranes testing GILBERTO,AugFeb 06, 2023 07:56 SISSY HARPER MD Feb 06, 2023 08:56
== END 2023-02-05 04:40 | disposition home or self-care (01) ==
LOC: WSo 02:05 → LDRP 02:05 → WSo 04:40
PROVIDERS: ATTEND Family Medicine
DX: O47.1 False labor at or after 37 completed weeks of gestation (principal); Z3A.38 38 weeks gestation of pregnancy
CPT/HCPCS: 81000; 84112; 87088; G0463; 99213

== ENCOUNTER → 2023-02-15 12:45 | Inpatient (IN) | payer BC, OTHER ==
[2023-02-13] VITALS (11 sets, daily range): BP systolic 109–119; BP diastolic 59–76
--- OUTSIDE RECORDS SUMMARY | 2023-02-13 06:37 | XMS REPORT ---
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 Name Role Phone SHERIE ODOM Unavailable PROBLEMS Type Condition ICD9-CM Code [id number] Code Onset Dates Condition S tatus W/U Status Risk SNOMED Code Notes Problem Vomiting R11.10 confirmed 320721617 Problem care in third trimester Z34.93 conf irmed [id number] Problem Subclinical hypothyroidism E03.8 confirmed 91392730 Problem Hypothyroidism, unspecified E03.9 confirmed 18534664 Problem care in second trimester Z34.92 con firmed Problem Missed period N92.6 confirmed 104852 00 Problem Second trimester Z33.1 confirmed 52379937 Problem care in first trimester Z34.91 conf irm [id number] ALLERGIES No Known Allergies ENCOUNTERS from 1989 to 2022-12-31 Encounter Location Date Provider Diagnosis [facility] [address] [facility] [id number] [place] [address] Jan, SHERIE ILENE Encounter for immuni zation Z23 IMMUNIZATIONS Vaccine Route Administration Date Status PRIVATE TDAP (BOOSTRIX) IM Intramuscular Sep 28, 2015 Admini stered FLUARIX QUAD (3 & UP)--2014 IM Intramuscular Jun 14, 2015 Administered PRIVATE TDAP (BOOSTRIX) IM Intramuscular December 10, 2022 Adminis tered PRIVATE FLULAVAL QUAD 0.5ML (6 MO AND UP) 2018 IM Intramuscular Jun 07, 2018 Administered 2nd Dose HRSA MODERNA, COVID-19, 0.5mL IM Intramuscular January 18, 2021 Administered 1st Dose HRSA MODERNA, COVID-19, 0.5mL IM Intramuscular December 21, 2020 Administered PRIVATE FLULAVAL QUAD 0.5ML (6 MO AND UP) 2019 IM Intramuscular May 25, 2020 Administered PRIVATE FLULAVAL QUAD 0.5ML (6 MO AND UP) 2018 IM Intramuscular May 27, 2019 Administered PRIVATE TDAP (BOOSTRIX) IM Intramuscular October 15, 2018 Adminis tered SOCIAL HISTORY Sex Assigned At : Social History Observation Description Sex Assigned At Unknown Alcohol Screen (Audit-C) Question Answer Notes Did you have a drink containing alcohol in the past year? No Points 0 Interpretation Negative PHQ2 Question Answer Notes In the last 2 weeks, how often have you had little interest or pleasure in doing things? Not at all In the last 2 weeks, how often have you been feeling down, depressed, or hopeless? Not at all Total PHQ2 Score 0 REASON FOR REFERRAL No Information VITAL SIGNS No information MEDICATIONS Medication SIG (Take, Route, Frequency, Duration) Notes Start Da te End Date Status 28-0.8 MG 1 Orally daily Jun, Active Levothyroxine Sodium 75 MCG 1 tablet in the morning on an empty stomach Orally Once a day for 30 days Active PROCEDURES No Information RESULTS No Results REASON FOR VISIT COVID-19 Vaccine Dose 2 MEDICAL (GENERAL) HISTORY Type Description Date Medical History Intrahepatic cholestasis Surgical History breast implants 2021 Hospitalization History child only 2016 Hospitalization History child 2019 Goals Section No Information Health Concerns No Information MEDICAL EQUIPMENT No Information MENTAL STATUS No Information FUNCTIONAL STATUS No Information ASSESSMENTS Encounter Date Diagnosis Assessment Notes Treatment Notes Treatm ent Clinical Notes Jan, Encounter for immunization (ICD-10 - Z23 ) PLAN OF TREATMENT Next Appt Details Provider Name:ATIF DO, 08:20:00 AM, [address] [place], [address], Provider Name:SISSY HARPER, 7 09:20:00 AM, [address] [facility] [facility], [id number], [address], Provider Name:ATIF DO, 08:20:00 AM, [address] [place], [address], Provider Name:SISSY HARPER, 2023-01-16 2 01:00:00 PM, [address] [facility], [id number], [place], [address], Provider Name:SISSY HARPER, 2023-01-16 8 09:00:00 AM, [address] [facility], [id number], [place], [address], Insurance Providers Payer Name Payer Address Payer Phone Insured Name Patient Relati onship to Insured Coverage Start Date Coverage End Date Subscriber Number Group Nu mber [facility] [address] [facility] [address] Marie Ramos Self - patient is the insured [id number] [employer] [address] [facility] [address] Marie Ramos Self - patient is the insured [id number]
[2023-02-13 07:12] LABS: BASOPHILS % (AUTO) 1 % (0-10); EOSINOPHILS # (AUTO) 0.2 10^3/uL (0.0-0.3); EOSINOPHILS % (AUTO) 2 % (0-10); HEMATOCRIT 31 % (35-52); HEMOGLOBIN 9.7 g/dL (11.5-16.0); LYMPHOCYTES # (AUTO) 2.2 10^3/uL (1.0-4.0); LYMPHOCYTES % (AUTO) 28 % (12-44); MEAN CORPUSCULAR HEMOGLOBIN 26 pg (25-34); MEAN CORPUSCULAR HGB CONC 32 g/dL (32-36); MEAN CORPUSCULAR VOLUME 84 fL (80-99); MEAN PLATELET VOLUME 10.5 fL (9.0-12.2); MONOCYTES # (AUTO) 0.8 10^3/uL (0.0-1.0); MONOCYTES % (AUTO) 11 % (0-12); NEUTROPHILS # (AUTO) 4.5 10^3/uL (1.8-7.8); NEUTROPHILS % (AUTO) 58 % (42-75); PLATELET COUNT 269 10^3/uL (130-400); WHITE BLOOD COUNT 7.8 10^3/uL (4.3-11.0)
--- NOTE | 2023-02-13 08:20 | History & Physical-OB ---
OB - Chief Complaint & HPI Date/Time Date of Admission: Date of Admission: Feb 13, 2023 at 06:31 Date seen by a Provider: Feb 13, 2023 Time Seen by a Provider: 08:00 Chief Complaint/History OB-Reason for Admission/Chief: Induction of Labor Hx : 3 Hx Para: 1102 Expected Date of Delivery: Feb 17, 2023 Gestational Age in Weeks: 39 Gestational Age in Days: 3 Indication for induction: other (risk reducing) History of Labs O+, antibody neg. RI. HIV/HepB/RPR NR. GC neg. Chlamydia pos, treated in first trimester and DAMASO neg. 1 hour glucola high, 3 hour glucola all normal. GBS neg. Other Subclinical hypothyroidism diagnosed in first trimester, on levothyroxine with TSH at goal in third trimester. Allergies and Home Medications Allergies Coded Allergies: No Known Drug Allergies (Unverified , 10/31/15) Patient Home Medication List Home Medication List Reviewed: Yes Levothyroxine Sodium (Levothyroxine) 75 Mcg Capsule, 75 MCG PO, (Reported) Entered as Reported by: MARIA ESTHER BARRERA on 12/15/22 1615 Last Action: Reviewed Vit W-Ca,Fe,FA(<1 mg) ( Vitamins) 1 Each Tablet, 1 EACH PO DAILY, (Reported) Entered as Reported by: LUIS MENA on 10/31/15 1908 Last Action: Reviewed OB - History Hx of Present Ultrasounds: Normal mid trimester US Medical Complications: Other (hypothyroidism) Information Induced Hypertension: No Maternal Gestational Diabetes: No Hemorrhage: No Obstetrical History Hx : 3 Hx Para: 2 Hx # Term Pregnancies: 1 Hx # Pregnancies: 1 Number of Living Children: 2 Hx Termination: No Hx Multiple Gestation: No Hx Stillbirth: No Hx Complication: Yes (Intrahepatic cholestasis with first ) Hx Induced Hypertens: No Hx Maternal Gestational Diabet: No Hx Hemorrhage: No Delivery History Hx Dystocia: No Hx Forceps Assisted Delivery: No Hx Vacuum Extraction Assisted: No Hx Placenta Abnormality: No Hx Distress: No Hx Large For Gestational Age I: No Hx Small for Gestational Age I: No Hx Section: No Hx Vaginal Delivery Post C-Sec: No Hx Blood Disorders: No Adverse Rxn to Tranfusion: No Patient Past Medical History PMHx: Denies significant history PSurgHx: Breast implants Social History/Family History Alcohol Use: Denies Use Recreational Drug Use: No Smoking Cessation: Never smoker 2nd Hand Smoke Exposure: No Immunizations Influenza Vaccine Up-to-Date: No; Not Current First/Initial COVID19 Vaccine: 12/21/2020 Second COVID19 Vaccination: 01/18/2021 Hepatitis A: Yes Hepatitis B: Yes Tetanus Booster (TDap): Less than 5yrs (12/10/2022) Rubella: immune RPR/VDRL: Negative GBS Status: Negative HBsAG: Negative OB - Admission Exam Physical Exam Vitals: Vital Signs 02/13/23 06:48 Temp 36.3 Pulse 89 Resp 18 Pulse Ox 98 O2 Delivery Room Air HEENT: NCAT Abdomen: Non tender Extremities: Normal Heart Rate: 120's Accelerations: Accelerations Present Decelerations: No Decelerations Nursing Home Variability: Average (6-25) Contractions on Admission: None Labs Laboratory Tests Test 02/13/23 07:09 Range/Units White Blood Count 7.8 4.3-11.0 10^3/uL Red Blood Count 3.67 L 3.80-5.11 10^6/uL Hemoglobin 9.7 L 11.5-16.0 g/dL Hematocrit 31 L 35-52 % Mean Corpuscular Volume 84 80-99 fL Mean Corpuscular Hemoglobin 26 25-34 pg Mean Corpuscular Hemoglobin Concent 32 32-36 g/dL Red Cell Distribution Width 15.0 H 10.0-14.5 % Platelet Count 269 130-400 10^3/uL Mean Platelet Volume 10.5 9.0-12.2 fL Immature Granulocyte % (Auto) 1 % Neutrophils (%) (Auto) 58 42-75 % Lymphocytes (%) (Auto) 28 12-44 % Monocytes (%) (Auto) 11 0-12 % Eosinophils (%) (Auto) 2 0-10 % Basophils (%) (Auto) 1 0-10 % Neutrophils # (Auto) 4.5 1.8-7.8 10^3/uL Lymphocytes # (Auto) 2.2 1.0-4.0 10^3/uL Monocytes # (Auto) 0.8 0.0-1.0 10^3/uL Eosinophils # (Auto) 0.2 0.0-0.3 10^3/uL Basophils # (Auto) 0.0 0.0-0.1 10^3/uL Immature Granulocyte # (Auto) 0.1 0.0-0.1 10^3/uL Syphilis Total Antibody Negative Negative OB - Assessment/Plan/Diagnosis Assessment Admission Dx Planned induction of labor Admission Status: Inpatient Order (span 2 midnights) Reason for Inpatient Admission: Labor and delivery stay Plan Plan: Section Problems: (1) Transverse presentation, antepartum Assessment & Plan: At 36 weeks fetus was vertex by US but on arrival today suspected to be transverse, confirmed by US right transverse position. EFW 4181 and JEROME 14. Discussed with Arc Welder Apprentice convolute tube winder and will plan for at noon. Qualifiers: Qualified Codes: O32.2XX0 - Maternal care for transverse and oblique lie, not applicable or unspecified SISSY HARPER MD Feb 13, 2023 08:20
--- NOTE | 2023-02-13 10:05 | Diagnostic Imaging Report ---
INDICATION: Evaluate growth, and presentation. TECHNIQUE: Multiple real-time grayscale images were obtained over the gravid uterus. COMPARISON: None FINDINGS: There is a single live intrauterine gestation in transverse presentation with the head to maternal right. The cervix is not well seen due to shadowing from the fetus. The placenta is anterior with no evidence of previa visible. The heart rate measures 118 BPM. The amniotic fluid index measures 14.4 cm. A three-vessel cord is noted. Anatomic survey was not performed at this time. The ordering provider was present during the examination. Biometrical measurements are as follows: Biparietal 9.66 cm, age 39 weeks 4 days. Head circumference 35.69 cm, age 42 weeks 0 days. Abdominal circumference 37.91 cm, age 42 weeks 0 days. Femur length 7.32 cm, age 37 weeks 4 days. Sonographic estimate age: 40 weeks 2 days. Sonographic estimated date of delivery: 02/11/2023. Estimated Weight: 4181 gm (+/- 611 gm). LMP percentile: 93%. heart rate: 118 beats per minute. number: 1 of 1. IMPRESSION: 1. Single live intrauterine gestation measuring at 40 weeks and 2 days which is within range of the clinical dates. heart rate and amniotic fluid appears normal. 2. Transverse presentation. Dictated by: Dictated on workstation # [id number]
[2023-02-13] MEDS: LACTATED RINGERS 1,000 ML IV PRN ×3 (10:55→12:44)
--- NOTE | 2023-02-13 13:24 | Operative Report ---
Operative Report Date of Procedure/Surgery Feb 13, 2023 Surgeon (s) BUSTER WHELAN III, DO Ring Striker (s): None Post-Operative Diagnosis 1 term intrauterine 2. Unstable lie confirmed to be in a transverse lie preoperatively 3. Suspected macrosomia Procedure Performed Primary low Transverse Section Description of Procedure Anesthesia Type: Spinal Estimated blood loss (mL): 650 Specimen(s) collected/removed Placenta - discarded Description of the Procedure The patient was counselled for delivery Spinal anesthesia was established, and pt was placed in supine position with L hip roll 2 grams Ancef given pre-op Prep and draped in usual fashion Adequate anesthesia established Pfannensteil incision with sharp disection to rectus fascia. Fascia was incised in the midlineline and extended laterally Fascia was from rectus muscles. Peritoneum was entered Bluntly An Dereck O-ring was placed A low-transverse incision was mad above the vesicouterine junction Amniotomy was performed with clear fluid vertex was rotated from LUQ to cephalic and delivered without difficulty Liveborn Femal infant 9#7oz (4270 gms) apgars of 8/9 Placenta was delivered intact Uterine cavity was swept clear. ANgles of the hysterotomy were closed with 0-Monocryl figure of eights Remainder of uterine closure with 0-PDS There was good hemostasis O-ring was removed Fascia was closed with Loop 1-PDS Sub-q tissues were irrigated and cauterized as necessary. SUb-Q skin closure with 4-0 Monocryl Steristrips and a pressure dressing Applied EBL 650 Sponge needle and instrument counts correct Findings of the Procedure Liveborn Female 9#7oz, 8/9 Allergies and Home Medications Allergies Coded Allergies: No Known Drug Allergies (Unverified , 10/31/15) Patient Home Medication List Home Medication List Reviewed: Yes Levothyroxine Sodium (Levothyroxine) 75 Mcg Capsule, 75 MCG PO, (Reported) Entered as Reported by: MARIA ESTHER BARRERA on 12/15/22 1615 Last Action: Reviewed Vit W-Ca,Fe,FA(<1 mg) ( Vitamins) 1 Each Tablet, 1 EACH PO DAILY, (Reported) Entered as Reported by: LUIS MENA on 10/31/15 1908 Last Action: Reviewed BUSTER WHELAN III, DO Feb 13, 2023 13:24
[2023-02-13] MEDS: OXYTOCIN PRE-MIX DRIP 500 ML IV SCH ×2 (13:47→17:05)
[2023-02-13] MEDS: DOCUSATE SODIUM 100 MG (COLACE) CAP PO SCH (20:46)
[2023-02-13] MEDS: KETOROLAC 30 MG/ML VIAL IVP SCH (20:46)
[2023-02-14] MEDS: HYDROcodone/APAP 5 MG/325 MG (LORTAB) TAB PO PRN ×3 (01:11→16:55)
[2023-02-14 03:35] VITALS: BP 129/57
[2023-02-14] MEDS: KETOROLAC 30 MG/ML VIAL IVP SCH ×2 (03:36→08:43)
[2023-02-14 06:09] LABS: BASOPHILS % (AUTO) 0 % (0-10); EOSINOPHILS # (AUTO) 0.1 10^3/uL (0.0-0.3); EOSINOPHILS % (AUTO) 1 % (0-10); HEMATOCRIT 25 % (35-52); HEMOGLOBIN 7.7 g/dL (11.5-16.0); LYMPHOCYTES # (AUTO) 1.7 10^3/uL (1.0-4.0); LYMPHOCYTES % (AUTO) 18 % (12-44); MEAN CORPUSCULAR HEMOGLOBIN 26 pg (25-34); MEAN CORPUSCULAR HGB CONC 31 g/dL (32-36); MEAN CORPUSCULAR VOLUME 84 fL (80-99); MEAN PLATELET VOLUME 10.8 fL (9.0-12.2); MONOCYTES # (AUTO) 0.7 10^3/uL (0.0-1.0); MONOCYTES % (AUTO) 8 % (0-12); NEUTROPHILS # (AUTO) 6.8 10^3/uL (1.8-7.8); NEUTROPHILS % (AUTO) 72 % (42-75); PLATELET COUNT 216 10^3/uL (130-400); WHITE BLOOD COUNT 9.4 10^3/uL (4.3-11.0)
[2023-02-14] MEDS: DOCUSATE SODIUM 100 MG (COLACE) CAP PO SCH ×2 (08:43→15:26)
--- NOTE | 2023-02-14 09:23 | Progress Note ---
Standard Progress Note Progress Notes/Assess & Plan Date Seen by a Provider: Feb 14, 2023 Time Seen by a Provider: 09:00 Progress/Assessment & Plan POD#1 s/p 1LTCS Pain control an issue yesterday, much improved. Some PP Bleeding related to atony and macrosomia also improved Anticipate d/c home tomorrow Diagnosis/Problems Diagnosis/Problems (1) Qualifiers: Qualified Codes: Z3A.39 - 39 weeks gestation of (2) Encounter for induction of labor (3) Transverse presentation, antepartum Qualifiers: Qualified Codes: O32.2XX0 - Maternal care for transverse and oblique lie, not applicable or unspecified BUSTER WHELAN III, DO Feb 14, 2023 09:23
[2023-02-14 09:45] VITALS: BP 99/51
[2023-02-14 15:22] VITALS: BP 105/55
[2023-02-14] MEDS: IBUPROFEN 600 MG (MOTRIN) TAB PO PRN (15:26)
[2023-02-14 22:26] VITALS: BP 111/63
[~2023-02-15] VITALS: Ht 160 cm; Wt 74.2 kg
[2023-02-15] MEDS: IBUPROFEN 600 MG (MOTRIN) TAB PO PRN ×2 (01:26→09:22)
[2023-02-15 03:09] VITALS: BP 116/57
[2023-02-15 09:21] VITALS: BP 110/55
[2023-02-15] MEDS: DOCUSATE SODIUM 100 MG (COLACE) CAP PO SCH (09:21)
[2023-02-15] MEDS: HYDROcodone/APAP 5 MG/325 MG (LORTAB) TAB PO PRN (09:22)
--- NOTE | 2023-02-15 09:31 | Short Stay Summary ---
Discharge Summary Hospital Course Was the Problem List Reviewed?: Yes Problems/Dx: (1) Qualifiers: Qualified Codes: Z3A.39 - 39 weeks gestation of (2) Encounter for induction of labor (3) Transverse presentation, antepartum Qualifiers: Qualified Codes: O32.2XX0 - Maternal care for transverse and oblique lie, not applicable or unspecified Final Diagnosis: Term Section Hospital Course Date of Admission: Feb 13, 2023 at 06:31 Admission Diagnosis : Family Physician/Provider: Anette Nathan MD Date of Discharge: 02/15/23 Discharge Diagnosis: [ ] Hospital Course: [ ] Labs and Pending Lab Test: Home Meds Active Reported Levothyroxine (Levothyroxine Sodium) 75 Mcg Capsule 75 Mcg PO Vitamins ( Vit W-Ca,Fe,FA(<1 mg)) 1 Each Tablet 1 Each PO DAILY Assessment/Pt Instructions Pt doing well POD#2 [place] PO well, voiding without difficulty Pain managed with oral NSAID and [place] Discharge Instructions Discharge Diet: No Restrictions Activity as Tolerated: Yes Discharge Physical Examination General Appearance: Alert, Oriented X3, Cooperative HEENT: Atraumatic Cardiovascular: Regular Rate Abdominal: Soft, No Tenderness Allergies: Coded Allergies: No Known Drug Allergies (Unverified , 10/31/15) Discharge Summary Date of Admission Feb 13, 2023 at 06:31 Date of Discharge Discharge Diagnosis (1) Qualifiers: Qualified Codes: Z3A.39 - 39 weeks gestation of (2) Encounter for induction of labor (3) Transverse presentation, antepartum Qualifiers: Qualified Codes: O32.2XX0 - Maternal care for transverse and oblique lie, not applicable or unspecified BUSTER WHELAN III, DO Feb 15, 2023 09:31
[~2023-02-15 12:45] MED LIST changes: +ACHD5005 PO; +BUPIVACAINE 0.5% 30 ML (SENSORCAINE) VIAL ONE; +CATHETER FLUSH 10 ML SYR IV SCH; +CITRIC ACID/SOB CIT (BICITRA) 30 ML UDC PO ONE; +D5 LR IV SOLUTION 1,000 ML IV SCH; +FAMOTIDINE 20MG/2ML IV (PEPCID) IV ONE; +HYDROcodone/APAP 5 MG/325 MG (LORTAB) TAB PO ONE; +HYDROcodone/APAP 5 MG/325 MG (LORTAB) TAB PO PRN; +KETOROLAC 30 MG/ML VIAL IVP PRN; +KETOROLAC 30 MG/ML VIAL ONE; +MEASLES,MUMPS,RUBELLA 1 EA INJ SC SCH; +METOCLOPRAMIDE INJ 10 MG/2 ML (REGLAN) IV ONE; +MINERAL OIL 30 ML UDC TOP PRN; +ONDANSETRON 4 MG/2 ML (SDV) Z0FRAN IVP PRN; +OXYTOCIN PRE-MIX DRIP 1,000 ML IV ONE; +OXYTOCIN PRE-MIX DRIP 500 ML IV SCH; +TETANUS,DIPTH,PERTUSS P/F (BOOSTRIX) 0.5 ML VIAL IM SCH; +ceFAZolin INJECTION 2,000 MG in NS (IVPB) 50 ML IV ONE; +fentaNYL INJ 100 MCG/2 ML AMP ONE
== END | disposition home or self-care (01) | DRG 788 ==
LOC: LDRP 02-13 06:31
PROVIDERS: ADMIT Family Medicine; ATTEND Family Medicine
PROC: 10D00Z1 Extraction of Products of Conception, Low, Open Approach (ICD-10-PCS; principal; 2023-02-13 12:03)
DX: O32.2XX0 Maternal care for transverse and oblique lie, not applicable or unspecified (principal); O99.284 Endocrine, nutritional and metabolic diseases complicating childbirth; E03.9 Hypothyroidism, unspecified; Z3A.39 39 weeks gestation of pregnancy; Z37.0 Single live birth; O36.63X0 Maternal care for excessive fetal growth, third trimester, not applicable or unspecified
CPT/HCPCS: 36415; 76805; 85025; 86780; 86850; 86900; 86901; 94664